=== PATIENT | female | born 1990 | race Caucasian/White ===

== ENCOUNTER 2019-06-25 05:35 | Outpatient (CLI) | payer OTHER ==
[~2019-06-25] VITALS: Ht 157.5 cm; Wt 74.3 kg
[~2019-06-25 05:35] MED LIST: CIPR500T4 PO; DOCU-159 PO; FER325 PO; IBUP-1544 PO; L.AC460C PO; PREN-93 PO
[2019-06-25 05:59] VITALS: BP 111/65; PULSE 68; RESP 18
--- NOTE | 2019-06-25 07:35 | TRIAGE ---
OB Triage Datetime Report Generated by CPN: 06/25/2019 07:35 Datetime: 06/25/2019 06:46 Stage of : OB Triage Labor Evaluation Frequency: 5-10 Monitor Mode: External Quality: Mild Pattern: Normal: <= 5 Contractions in 10 Minutes Resting Tone Bush: Relaxed Contraction Comments: Pt denies feeling ucs Heart Rate FHR Baseline Rate: 130 Monitor Mode: External US FHR Baseline Changes: No Baseline Change Variability: Moderate 6-25 bpm Accelerations: 15X15 Decelerations: None Category: Category I Pain Assessment Pain Scale: 0 Pain Presence: None/Denies Pain Type: N/A Vaginal Exam Membrane Status: Intact Datetime: 06/25/2019 05:56 Time of Arrival: 06/25/2019 05:30 EGA: 39.6 Arrived By: Wheelchair Arrived From: Home Chief Complaint: c/o DFM since 2299 Movement: Decreased Contractions: Denies/Absent Rupture of Membranes: Denies Vaginal Bleeding: None Vaginal Discharge: Denies Recent Sexual Intercouse: Denies Abdominal Trauma: Not Applicable Patient Complaints: Nausea Time Provider Notified: 06/25/2019 05:50 Provider Notified: Dr Abreu Initial Plan: EFM,UA,URINE CULTURE, BPP,EFW Datetime: 06/25/2019 05:50 Stage of : OB Triage Datetime: 06/25/2019 05:48 Stage of : OB Triage Maternal Assessment Level of Consciousness: Keenly Alert, Responsive Headache: Denies Blurred Vision: No Nausea/Vomiting: Denies RUQ Epigastric Pain: Denies Facial Edema: None Monitor Mode: External Resting Tone Bush: Relaxed Heart Rate FHR Baseline Rate: 125 Monitor Mode: External US Pain Assessment Pain Scale: 0 Pain Presence: None/Denies Pain Type: N/A
--- NOTE | 2019-06-25 12:09 | PN ---
Triage Information Date/Time 06/25/19 Reason for visit: DFM Weeks of Gestation 39w6d /Para Diabetes: none Hypertention: none Objective Vital Signs Date Temp Pulse Resp B/P (MAP) Pulse Ox O2 O2 Flow FiO2 Time Delivery Rate 06/25/19 98.7 68 18 111/65 Room Air 05:59 (80) Heart Rate: 120's Heart Rate Comments CAT I Contractions: None Results/Medications Results 24 hrs Laboratory Tests Test 06/25/19 05:30 Urine Color STRAW Urine Clarity CLEAR Urine pH 6.0 Urine Specific Yeso 1.004 Urine Ketones NEGATIVE Urine Nitrite NEGATIVE Urine Bilirubin NEGATIVE Urine Urobilinogen NEGATIVE Urine Leukocyte Esterase NEGATIVE Urine Hemoglobin NEGATIVE Urine Glucose NEGATIVE Urine Total Protein NEGATIVE Imaging Results BPP 07/05 ERIN 9cm EFW 4042+- 606gm Assessment/Plan A IUP 39w 6d macrosomia DFM P IOL was recommended by her OB refuse to be induced and BERT Sultana MD Jun 25, 2019 12:09
== END 2019-06-25 07:10 | disposition left against medical advice (07) ==
LOC: OBT 05:35 → L-D 05:35 → OBT 07:10
PROVIDERS: ATTEND Obstetrics & Gynecology
DX: O36.8130 Decreased fetal movements, third trimester, not applicable or unspecified (principal); O36.63X0 Maternal care for excessive fetal growth, third trimester, not applicable or unspecified; O26.893 Other specified pregnancy related conditions, third trimester; R10.2 Pelvic and perineal pain; Z3A.39 39 weeks gestation of pregnancy
CPT/HCPCS: 76815; 76818; 81003; 87086; G0463

== ENCOUNTER 2019-06-26 20:18 | Inpatient (IN) | payer OTHER ==
[~2019-06-26] VITALS: Ht 157.5 cm; Wt 75.7 kg
--- NOTE | 2019-06-26 20:44 | TRIAGE ---
OB Triage Datetime Report Generated by CPN: 06/26/2019 20:43 Datetime: 06/26/2019 20:31 Dilatation (cms): 1.0 Effacement (%): 50 Station: -2 Exam By: madi Vaginal Bleeding: None Cervix, Consistency: Soft Cervix, Position: Midposition Datetime: 06/26/2019 20:29 Assessment Type: Triage Level of Consciousness: Keenly Alert, Responsive DTR's/Clonus: DTRs 2+; No Clonus Headache: Denies Blurred Vision: No Respiratory Effort: Unlabored; Regular Rhythm; Equal Expansion Breath Sounds, Left: Clear and Equal Breath Sounds, Right: Clear and Equal Nausea/Vomiting: Denies RUQ Epigastric Pain: Denies Lower Extremities Edema: None Degree: None Upper Extremities Edema: None Degree: None Facial Edema: None History of Falling: (0) No Secondary Diagnosis: (0) No Ambulatory Aid: (0) Bedrest/Nurse Assist IV Therapy: (0) No Gait: (0) Normal/Bedrest/Immobile Mental Status: (0) Oriented to Own Ability Fall Score: 0 Fall Risk Score Definition: No Risk: No action required Datetime: 06/26/2019 20:28 Time of Arrival: 06/26/2019 20:13 EGA: 40.0 Arrived By: Ambulatory Arrived From: Home Chief Complaint: pt. here C/O UC'S Movement: Present Contractions: Irregular Rupture of Membranes: Denies Vaginal Bleeding: Scant Vaginal Discharge: Denies Recent Sexual Intercouse: Denies Abdominal Trauma: Not Applicable Patient Complaints: Contractions; Cramping; Back Pain Time Provider Notified: 06/26/2019 20:35 Provider Notified: ESHAGHIAN Initial Plan: EFM/SVE Datetime: 06/26/2019 20:25 Time of Arrival: 06/26/2019 20:13 EGA: 40.0 Datetime: 06/26/2019 20:23 Monitor Mode: External Monitor Mode: External US Datetime: 06/25/2019 06:58 Stage of : OB Triage
[2019-06-26 20:49] VITALS: BP 99/53; PULSE 71; RESP 18; Ht 157.5 cm; Wt 75.7 kg
[2019-06-26] MEDS ORDERED: METHYLERGONOVINE 0.2 MG INJ IM PRN (21:00)
[2019-06-26] MEDS ORDERED: OXYTOCIN 30 UNITS/LR 500 ML IV PRN (21:00)
[2019-06-26] MEDS ORDERED: LIDOCAINE 1% (MPF) 30 ML INJ INJ PRN (21:00)
[2019-06-26] MEDS ORDERED: AMPICILLIN 2 GM/NS (PMX) 100 ML IV ONE (21:00)
[2019-06-26] MEDS ORDERED: BUTORPHANOL 2 MG INJ IV PRN (21:00)
[2019-06-26] MEDS ORDERED: CARBOPROST 250 MCG INJ IM PRN (21:00)
[2019-06-26] MEDS ORDERED: OXYTOCIN 30 UNITS/LR 500 ML IV SCH ×2 (21:00)
[2019-06-26] MEDS ORDERED: MISOPROSTOL 200 MCG TAB PR PRN (21:00)
[2019-06-26] MEDS: LACTATED RINGER'S 1,000 ML IV SCH (22:38)
[2019-06-27] MEDS: AMPICILLIN 1 GM/NS (PMX) 50 ML IV SCH ×4 (03:02→15:08)
[2019-06-27] MEDS: LACTATED RINGER'S 1,000 ML IV SCH ×3 (06:19→23:46)
--- NOTE | 2019-06-27 07:42 | PREOPHP ---
DATE OF ADMISSION: 06/26/2019 HISTORY OF PRESENT ILLNESS: Ms. Wendie Angel is a 28-year-old 1, para 0, EDC 06/26/2019 intra uterine at 40 weeks and 1 day gestational age, presented to triage yesterday complaining of contractions. Earlier this week, she was seen in triage for decreased movement; however, she left against medical advice. She currently rates her contractions pain 6/10. She currently reports good movement. Denies any vaginal bleeding or discharge. Her care took place at [facility]. PAST MEDICAL HISTORY: None. MEDICATIONS: vitamins. PAST SURGICAL HISTORY: None. OBSTETRIC HISTORY: Prima . GYNECOLOGIC HISTORY: [age], regular 3 to 4 days. Denies any sexually transmitted infections. Sexu ally active with 1 partner. SOCIAL HISTORY: Denies any smoking, drugs or alcohol. FAMILY HISTORY: None. REVIEW OF SYSTEMS: All within normal except history of present illness. PHYSICAL EXAMINATION: HEENT: Within normal. LUNGS: CTA bilateral. CARDIOVASCULAR: S1, S2, regular rhythm. ABDOMEN: Gravid, nontender. Negative CVA bilateral. EXTREMITIES: Negative for calf tenderness. PELVIC: Vaginal exam 1 cm dilated, 40% effaced, -3 station. heart tracing category 1. [place]: Irregular contractions. Estimated weight 4042 grams. ASSESSMENT: Intrauterine at 40 weeks and 1 day gestational age with a history of decreased movement, suspected macrosomia. PLAN: The patient explained in great detail the increased risk of shoulder dystocia concerning the e stimated weight. The patient desires to continue with induction with cervical ripening with Cy totec and Pitocin. Again the risks, benefits and alternatives were explained, but not limited to, sh oulder dystocia. Plan is to retain care records and after careful review of care r ecords, may consider induction at this time. Dictated By: AMANDEEP GIL/AIDAN Conf#: [id number] DID#: [id number]
[2019-06-27] MEDS: MISOPROSTOL 50 MCG CAPSULE PO SCH ×3 (11:00→18:58)
[2019-06-27] MEDS ORDERED: MISOPROSTOL 50 MCG CAPSULE PO SCH (13:00)
--- NOTE | 2019-06-28 00:18 | PREAC ---
Date/Time of Note Date/Time of Note DATE: 06/28/19 TIME: 00:17 Anesthesia Eval and Record Evaluation Time Pre-Procedure Interview DATE: 06/28/19 TIME: 00:17 Age 28 Sex female NPO: 8 hrs Preoperative diagnosis labor pain Planned procedure epidural Past Medical History Past Medical History: Includes : Gestational age: (40.1) Surgery & Anesthesia Issues No known issue Meds Anticoagulation: No Beta Buddy within 24 hr: No Reason Beta Buddy not given: Pt. not on B-Buddy Reported Medications Vit No.124/Iron/FA ( Vitamin Tablet) 1 Each Tablet, 1 EACH PO DAILY, TAB 06/26/19 Current Medications Lactated Ringer's 1,000 ml @ 125 mls/hr Q8H IV Last administered on 06/27/19at 23:46; Admin Dose 125 MLS/HR; Start 06/26/19 at 20:44 Butorphanol Tartrate (Stadol) 2 mg Q2H PRN IV .PAIN SCALE 6-10 Last administered on 06/27/19at 20:39; Admin Dose 2 MG; Start 06/26/19 at 21:00 Lidocaine (Xylocaine 1% (Mpf)) 30 ml ONCE PRN INJ .EPISIOTOMY; Start 06/26/19 at 21:00 Oxytocin/Lactated Ringer's 500 ml @ 500 mls/hr ONCE POST IV ; Start 06/26/19 at 21:00 Oxytocin/Lactated Ringer's 500 ml @ 125 mls/hr POST IV ; Start 06/26/19 at 21:00 Oxytocin/Lactated Ringer's 500 ml @ 0 mls/hr ONCE PRN IV .VAGINAL BLEEDING; Start 06/26/19 at 21:00 Methylergonovine Maleate (Methergine) 0.2 mg ONCE PRN IM .VAGINAL BLEEDING; Start 06/26/19 at 21:00 Carboprost Tromethamine (Hemabate) 250 mcg ONCE PRN IM .VAGINAL BLEEDING; Start 06/26/19 at 21:00 Misoprostol (Cytotec) 1,000 mcg ONCE PRN AK .VAGINAL BLEEDING; Start 06/26/19 at 21:00 Misoprostol (Cytotec 50 Mcg Capsule) 50 mcg Q4H PO Last administered on 06/27/19at 18:58; Admin Dose 50 MCG; Start 06/27/19 at 11:00; Stop 06/28/19 at 07:01 Meds reviewed: Yes Allergies Coded Allergies: No Known Allergy (Unverified , 06/25/19) Allergies Reviewed: Yes Labs/Studies Labs Reviewed: Reviewed by anesthesiologist Result Diagram: 06/26/192139 test: Positive Studies: ECG (n/a), CXR (n/a) Pre-procedure Exam Last vitals Vital Signs Date Temp Pulse Resp B/P (MAP) Pulse Ox O2 O2 Flow FiO2 Time Delivery Rate 06/26/19 98.2 71 18 99/53 (68) Room Air 20:49 Airway: Adequate mouth opening Mallampati: Mallampati I Teeth: Normal Lung: Normal Heart: Normal ASA Physical Status ASA physical status: 2 Emergency: None Planned Anesthetic Neuraxial: Epidural Pre-operative Attestations Prior to commencing anesthesia and surgery, the patient was re-evaluated, there was verification of: *The patient's identity *The results of appropriate recent lab work and preoperative vital signs *The above evaluation not changing prior to induction *Anesthetic plan, risk benefits, alternative and complications discussed with patient/family; questions answered; patient/family understands, accepts and wishes to proceed. YESENIA DODSON MD Jun 28, 2019 00:18
[2019-06-28] MEDS ORDERED: FENTAnyl 2MCG/ML-ROPIV 0.2% 100 ML ONE (00:34)
[2019-06-28] MEDS ORDERED: DIPHENHYDRAMINE 50 MG INJ IV PRN (01:00)
[2019-06-28] MEDS ORDERED: NALOXONE (0.4 MG/ML) INJ IV PRN (01:00)
--- NOTE | 2019-06-28 01:03 | PAC ---
Date/Time of Note Date/Time of Note DATE: 06/28/19 TIME: 01:02 Post-Anesthesia Notes Post-Anesthesia Note Last documented vital signs Vital Signs Date Temp Pulse Resp B/P (MAP) Pulse Ox O2 O2 Flow FiO2 Time Delivery Rate 06/28/19 98.2 71 18 100/57 99 Room Air 05:49 Activity: WNL Respiratory function: WNL Cardiovascular function: WNL Mental status: Baseline Pain reasonably controlled: Yes Hydration appropriate: Yes Nausea/Vomiting absent: No YESENIA DODSON MD Jun 28, 2019 01:03
[2019-06-28] MEDS: ONDANSETRON 4 MG INJ IV PRN ×3 (01:06→21:29)
[2019-06-28] MEDS: LACTATED RINGER'S 1,000 ML IV SCH ×4 (01:14→22:58)
[2019-06-28] MEDS: MISOPROSTOL 50 MCG CAPSULE PO SCH ×3 (01:14→19:00)
[2019-06-28] MEDS ORDERED: OXYTOCIN 30 UNITS/LR 500 ML IV SCH (08:30)
[2019-06-28] MEDS: FENTAnyl 2MCG/ML-ROPIV 0.2% 100 ML BAG EPI SCH ×3 (16:21→23:58)
--- NOTE | 2019-06-28 19:31 | QN ---
Documentation Comment progress note patient seen and evaluated no complaints vs stable afebrile ab gravid nt extremity no edema no calf tenderness ve 4-5/60/-2 srom fhr cat 1 toco regular a/ iup at 40 wks 2 days ga, in labor with pitocin augmentation p/ anticipate vaginal delivery AMANDEEP HINOJOSA MD Jun 28, 2019 19:31
[2019-06-29] MEDS ORDERED: ACETAMINOPHEN 500 MG TAB PO STA ×2 (01:10→16:35)
[2019-06-29] MEDS: LACTATED RINGER'S 1,000 ML IV SCH ×4 (01:20→14:40)
[2019-06-29] MEDS: FENTAnyl 2MCG/ML-ROPIV 0.2% 100 ML BAG EPI SCH ×2 (05:39→10:31)
[2019-06-29] MEDS ORDERED: MINERAL OIL LIGHT 10 ML VIAL TOP ONE (06:00)
[2019-06-29] MEDS ORDERED: AMPICILLIN 2 GM/NS (PMX) 100 ML IV ONE (07:00)
[2019-06-29] MEDS ORDERED: METHYLERGONOVINE 0.2 MG INJ ONE (07:00)
[2019-06-29] MEDS ORDERED: CARBOPROST 250 MCG INJ ONE (07:00)
[2019-06-29] MEDS ORDERED: DEXTROSE 5%-LR 500 ML IV ONE (10:00)
[2019-06-29] MEDS: AMPICILLIN 1 GM/NS (PMX) 50 ML IV SCH ×2 (11:38→14:42)
[2019-06-29] MEDS: ONDANSETRON 4 MG INJ IV PRN (15:57)
[2019-06-29] MEDS ORDERED: CEFAZOLIN 2 GM/50 ML (PMX) 50 ML IVPB SCH (17:00)
[2019-06-29] MEDS ORDERED: AZITHROMYCIN 500MG/NS (PMX) 250 ML IVPB ONE (17:00)
[2019-06-29] MEDS ORDERED: ACETAMINOPHEN 1000MG/100ML IV 100 ML IVPB ONE (17:00)
[2019-06-29] MEDS ORDERED: morphine SULFATE/PF (10 MG/10 ML) INJ ONE (17:15)
[2019-06-29] MEDS ORDERED: OXYTOCIN 10 UNIT INJ ONE ×2 (17:19→17:54)
[2019-06-29] MEDS ORDERED: ONDANSETRON 4 MG INJ ONE (17:19)
[2019-06-29] MEDS ORDERED: MIDAZOLAM 1 MG/ML 2 ML INJ ONE ×2 (17:27→17:49)
[2019-06-29] MEDS ORDERED: FENTAnyl 50 MCG/ML VIAL ONE ×3 (17:44→18:10)
--- NOTE | 2019-06-29 19:04 | PAC ---
Date/Time of Note Date/Time of Note DATE: 06/29/19 TIME: 19:03 Post-Anesthesia Notes Post-Anesthesia Note Last documented vital signs Vital Signs Date Temp Pulse Resp B/P (MAP) Pulse Ox O2 O2 Flow FiO2 Time Delivery Rate 06/29/19 100.1 01:20 06/26/19 71 18 99/53 (68) Room Air 20:49 Activity: WNL Respiratory function: WNL Cardiovascular function: WNL Mental status: Baseline Pain reasonably controlled: Yes Hydration appropriate: Yes Nausea/Vomiting absent: Yes Comments BP:112/67, P:78, Spo2:100%, T:98,9 TATIANNA MILES MD Jun 29, 2019 19:04
[2019-06-29] MEDS ORDERED: NALOXONE (0.4 MG/ML) INJ IV PRN (19:30)
[2019-06-29] MEDS ORDERED: morphine 2 MG INJ IV PRN (19:30)
[2019-06-29] MEDS ORDERED: DIPHENHYDRAMINE 50 MG INJ IV PRN (19:30)
[2019-06-29] MEDS ORDERED: ONDANSETRON 4 MG INJ IV PRN (19:30)
[2019-06-29] MEDS: KETOROLAC 30 MG INJ IV PRN (19:47)
--- NOTE | 2019-06-29 19:51 | OPPN ---
Date/Time of Note Date/Time of Note DATE: 06/29/19 TIME: 19:35 Operative Report Planned Procedure Free Text/Dictation primary c/s is decided for mode of delivery due to failure to descent and maternal fever and tachycardia Procedure date Jun 29, 2019 Procedure(s) primary LTCS Performed by see signature line Contact Manager: ИРИНА SMALL 2nd Contact Manager none Anesthesiologist: TATIANNA MILES MD Pre-procedure diagnosis IUP 40w3d failure to descent maternal fever tachycardia [id number] Anesthesia Type: Dewww8x spinal Post-Procedure Post-procedure diagnosis delivered normal male infant same as above Findings Live Baby [m ], Apgars [9] and [9], weight [8lb10z], position ], [op] vx presentation [no]cord. Estimated Blood Loss: 600 - 700 mls Specimen(s) none Grafts/Implant(s) none Complication(s) none BERT MEDEL MD Jun 29, 2019 19:46
[2019-06-29] MEDS ORDERED: LACTATED RINGER'S 1,000 ML IV SCH (21:42)
[2019-06-29] MEDS ORDERED: OXYTOCIN 30 UNITS/LR 500 ML IV SCH (21:42)
[2019-06-29] MEDS ORDERED: OXYCODONE/ACETAMINOPHEN (5/325) TAB PO PRN (22:00)
[2019-06-29] MEDS ORDERED: MISOPROSTOL 200 MCG TAB PR PRN (22:00)
[2019-06-29] MEDS ORDERED: OXYTOCIN 30 UNITS/LR 500 ML IV PRN (22:00)
[2019-06-29] MEDS ORDERED: NA PHOSPHATE/BIPHOS 133 ML ENEMA PR PRN (22:00)
[2019-06-29] MEDS ORDERED: NACL 0.9% 3 ML SYG IV SCH (22:00)
[2019-06-29] MEDS ORDERED: METHYLERGONOVINE 0.2 MG INJ IM PRN (22:00)
[2019-06-29] MEDS ORDERED: CARBOPROST 250 MCG INJ IM PRN (22:00)
[2019-06-29 22:30] VITALS: BP 104/62; PULSE 95; RESP 18
[2019-06-29] MEDS: CLINDAMYCIN 900 MG/D5W (PMX) 50 ML IVPB SCH (23:40)
[2019-06-30] MEDS: KETOROLAC 30 MG INJ IV PRN ×2 (02:23→16:32)
[2019-06-30 04:00] VITALS: BP 104/69; PULSE 88; RESP 18
[2019-06-30] MEDS: LANOLIN HPA 1 PKT TOP PRN (05:43)
[2019-06-30 08:45] VITALS: BP 112/65; PULSE 99; RESP 18
[2019-06-30] MEDS: CLINDAMYCIN 900 MG/D5W (PMX) 50 ML IVPB SCH (09:01)
[2019-06-30] MEDS: SENNA/DOCUSATE NA (8.6MG/50MG) TAB PO SCH ×2 (09:01→21:00)
[2019-06-30] MEDS: ACETAMINOPHEN 325 MG TAB PO PRN ×2 (11:12→17:08)
[2019-06-30] MEDS ORDERED: ACETAMINOPHEN 325 MG TAB PO PRN (11:30)
[2019-06-30] MEDS: PIPER-TAZO 3.375 GM IV (PMX) 100 ML IVPB SCH ×2 (13:50→22:00)
[2019-06-30 16:30] VITALS: BP 114/66; RESP 16
--- NOTE | 2019-06-30 17:10 | PN ---
Date/Time of Note Date/Time of Note DATE: 06/30/19 TIME: 17:06 OB Subjective Subjective Subjective POD#1 Patient is doing well. She denies nausea, vomiting, shortness of breath, chest pain, headache. She has been ambulating without difficulty, tolerating regular diet. Pain is well controlled on current medications OB Objective Objective Objective Vital Signs Date Temp Pulse Resp B/P (MAP) Pulse Ox O2 O2 Flow FiO2 Time Delivery Rate 06/30/19 102.4 12:00 06/30/19 99 18 112/65 98 08:45 (81) 06/30/19 Room Air 04:00 General: AAO X 3, comfortable, NAD, appropriate mood and affect. Heart: RRR +S1, +S2, no murmurs. Lungs: Clear to auscultation (B/L), no rales, ronchi or wheezing. ABD: +BS. Soft, non-tender. Uterus 2 cm below umbilicus Incision: Dry dressing Flank: No CVA tenderness (B/L) LE: Mild edema. No clubbing, cyanosis, thigh or calf tenderness (B/L). Homans 'sign is negative OB Assessment/Plan Other plan: 28-year-old 1 para 1-0-0-1 s/p delivery at 40 weeks and 2 days for failure to descent. POD#1 - She prather has fever, CBC, urinalysis, urine culture, blood culture x2 ordered. Zosyn 3.75mg every 8 hours started. Plan of care discussed with primary OB - Contraception methods with R/B/A/FR discussed - Continue care - Follow-up with primary OB AFSHAN MOORE Jun 30, 2019 17:10
[2019-06-30 20:00] VITALS: BP 98/60; PULSE 84; RESP 16
--- NOTE | 2019-06-30 22:39 | DELSUM ---
Delivery Summary A-C Datetime Report Generated by CPN: 06/30/2019 22:39 DELIVERY PERSONNEL [employer] Consultant: Mahmood Don MATERNAL INFORMATION Delivery Anesthesia: Epidural Medications in Delivery: 30 UNIT PITOCIN Delivery QBL (ml): 700 Placenta Cultured: No Maternal Complications: None LABOR SUMMARY EDC: 06/26/2019 00:00 No. Babies in Womb: 1 Attempted: No Labor Anesthesia: Epidural LABOR INFORMATION Reason for Induction: Postterm Onset of Labor: 06/26/2019 18:00 Cervical Ripening Agents: Cytotec @ 50 Group B Beta Strep: Negative Antibiotics # of Doses: 5 Antibiotics Time of Last Dose: 06/29/2019 17:10 Steroids Given: None Reason Steroids Not Administered: Not Applicable MEMBRANES Membranes Rupture Method: Artificial Rupture of Membranes: 06/28/2019 18:40 Length of Rupture (hr): 23.02 Amniotic Fluid Color: Light Meconium Amniotic Fluid Amount: Moderate Amniotic Fluid Odor: Normal STAGES OF LABOR Stage 3 hr: 0 Stage 3 min: 2 Total Time in Labor hr: 71 Total Time in Labor min: 43 CSECTION DELIVERY Primary Indication: Arrest of Descent Secondary Indication: Nonreassuring Stat CSection Urgency: Emergency CSection Incidence: Primary Labor: Labor Elective: N/A CSection Incision: Lower Uterine Transverse BABY A INFORMATION Infant Delivery Date/Time: 06/29/2019 17:41 Method of Delivery: Born in Route : No : N/A (Annotations: Data stored by [facility] on behalf of user) Forceps: N/A Vacuum Extraction: N/A Shoulder Dystocia : No SHOULDER DYSTOCIA BABY A Delivery Date/Time: 06/29/2019 17:41 PRESENTATION/POSITION BABY A Presentation: Cephalic Cephalic Presentation: Vertex Vertex Position: Left Occipital Anterior Breech Presentation: N/A PLACENTA INFORMATION BABY A Placenta Delivery Time : 06/29/2019 17:43 Placenta Method of Delivery: Manual Removal Placenta Status: Delivered SCORES BABY A Heart Rate 1 min: >100 bpm Resp Effort 1 min: Good Cry Reflex Irritability 1 min: Cough/Sneeze/Pulls Away Muscle Tone 1 min: Active Motion Color 1 min: Body [place], Extremit Blue Resuscitation Effort 1 min: Tactile Stimulation SCORE 1 MIN: 9 Heart Rate 5 min: >100 bpm Resp Effort 5 min: Good Cry Reflex Irritability 5 min: Cough/Sneeze/Pulls Away Muscle Tone 5 min: Active Motion Color 5 min: Body [place], Extremit Blue Resuscitation Effort 5 min: Tactile Stimulation SCORE 5 MIN: 9 INFANT INFORMATION BABY A Gestational Age at Delivery: 40.3 Gestational Status: Full Term- 39- 40.6 Weeks Outcome : Liveborn, with signs of life Condition : Stable Infant Sex: Male IDENTIFICATION/MEDS BABY A ID Band Number: [id number] ID Band Location: Right Leg; Left Arm Sensor Applied: Yes Sensor Number: [id number] Sensor Location : Cord Clamp Vitamin K Given : Not Given Erythromycin Given: Not Given WEIGHT/LENGTH BABY A Infant Birthweight (gm): 3665 Infant Weight (lb): 8 Infant Weight (oz): 1 Length (in): 21.00 Length (cm): 53.34 CORD INFORMATION BABY A No. Cord Vessels: 3 Nuchal Cord : N/A Nuchal Cord- Other: 0 True Knot: 0 Cord Blood Taken: Yes Banking/Donate Info: NO Infant Suction: Mouth; Nose ASSESSMENT BABY A Infant Complications: Decreased Variability; Extended Tachycardi; Multiple Variable Decels Physical Findings at Delivery: Within Normal Limits Infant Respirations: Appears Normal Naval Designer/ALS Called : No Care By: MIDNA GOODWINC Transferred To: Remains with Mother
[2019-06-30] MEDS: OXYCODONE/ACETAMINOPHEN (5/325) TAB PO PRN (23:17)
[2019-07-01] MEDS: IBUPROFEN 600 MG TAB PO SCH ×5 (01:10→23:43)
[2019-07-01] MEDS: CEPHALEXIN 500 MG CAP PO SCH ×5 (01:10→23:43)
[2019-07-01] MEDS: CLINDAMYCIN 300 MG CAP PO SCH ×5 (01:10→23:43)
[2019-07-01 04:00] VITALS: BP 91/52; PULSE 85; RESP 18
[2019-07-01] MEDS: PIPER-TAZO 3.375 GM IV (PMX) 100 ML IVPB SCH ×3 (04:05→22:00)
--- NOTE | 2019-07-01 08:45 | OPR ---
DATE OF OPERATION: 06/29/2019 PREOPERATIVE DIAGNOSIS: at 40 weeks 3 days, failure to descend, maternal fever, tach ycardia. POSTOPERATIVE DIAGNOSES: Delivered normal male , 9 and 9. PROCEDURE: Primary . ANESTHESIA: Spinal. ANESTHESIOLOGIST: Refer to the chart. ESTIMATED BLOOD LOSS: Approximately 700 mL. PROCEDURE: Under the appropriate induction of epidural anesthesia, the patient was placed in supine position. Abdominal wall was prepped and draped in usual aseptic manner. A transverse incision was made approximately 2 fingers above the pubic rami, incision was carried down through the subcutaneous tissue to the anterior recti fascia which was incised transversely in length of the incision. Fasci al flap was created by blunt and sharp dissection of tendinous attachment to rectus muscle was separa becka and peritoneal cavity was entered. There was a copious amount of serous fluid noted escaped from of the abdominal cavity. The bladder was extremely high. It covers almost the whole operative fiel d because did not seem to be draining which was checked. There was not much draining and the [place] c atheter was above the symphysis, which was felt right on the low segment, which was trying to drain t he out push down with difficulty and finally managed to make an incision much higher than usual level of the uterine incision was made above the uterovesical reflection way high and carried down and anibal ched the amniotic membrane, ruptured, revealed clear amniotic fluid and incision was extended bilater ally with the bandage scissors, and a normal male born from occiput posterior, 9 and 9. Baby weighed 8 pounds 1 ounce. Delayed cord clamp done, and [facility]. Cord blood was obtained. The placenta was removed manually. Cavity was complet quinton explored after uterus was exteriorized. Uterine incision was closed using #1 chromic catgut in c ontinuous manner on the first layer and second layer using 2-0 chromic catgut in continuous manner. No bleeder was noted except the right cornual which was separately closed with 0 chromic catgut with a thin needle. Uterus was relocated into the abdominal cavity after the irrigation done, sponge coun t taken which was correct. Uterine incision was rechecked for the bleeder, which was intact, and the piece of Surgicel was laid on the incisional site. Parietal peritoneum was closed using 0 chromic c atgut in continuous manner, muscle closed with 0 chromic catgut in continuous manner. Fascia closed with #1 Vicryl in continuous manner in 2 segments. Subcutaneous tissue irrigated with water. This l anel was approximated with a 2-0 plain in continuous manner after the hemostasis secured. Skin close d with 3-0 Monocryl in subcuticular manner. Steri-Strip applied. A pressure dressing applied. Ruma mated blood loss approximately 700 mL. Urine output approximately 200 mL. It was orange colored but the tubing was clear. The patient sent to recovery room in stable condition. Dictated By: NICHOLAS VELAZCO/AIDAN Conf#: [id number] DID#: [id number] CC: AMANDEEP HINOJOSA MD;*EndCC*
[2019-07-01 09:00] VITALS: BP 110/71; PULSE 82; RESP 20
[2019-07-01] MEDS: SENNA/DOCUSATE NA (8.6MG/50MG) TAB PO SCH ×2 (09:36→23:43)
[2019-07-01] MEDS: OXYCODONE/ACETAMINOPHEN (5/325) TAB PO PRN ×2 (11:42→19:48)
[2019-07-01 16:10] VITALS: BP 105/65; PULSE 95; RESP 20
--- NOTE | 2019-07-01 17:25 | QN ---
Documentation Comment progress note patient seen and evaluated no complaints vs stable afebrile ab soft nt c/d/i no distention extremity no edema no calf tenderness a/ sp cd pod 2, stable afebrile bacteremia p/ infectious disease consult continue to monitor closely AMANDEEP HINOJOSA MD Jul 01, 2019 17:25
--- NOTE | 2019-07-01 17:55 | CONS ---
DATE OF ADMISSION: 06/26/2019 DATE OF CONSULTATION: 07/01/2019 TYPE OF CONSULTATION: Infectious disease. REASON FOR CONSULTATION: Antibiotic management. HISTORY OF PRESENT ILLNESS: Wendie Angel is a 28-year-old female, 1, para 0 with int rauterine at 40 weeks on 06/26/2019 and 1 day gestational age, presented to triage on 06/25 complaining of contractions. She denied vaginal bleeding. She has an intrauterine o f 40 weeks and 1 day gestational age, history of decreased movement, suspected macrosomia . The patient explained in great detail the increased risk of shoulder dystocia concerning the estim ated weight. She desires to continue with induction with cervical ripening with Cytotec and Pi tocin. HOSPITAL COURSE: The patient had a primary on 06/29/2019 due to failure of descent of the fetus and maternal fever and tachycardia. Normal infant was delivered on 06/29/2019. On 06/30, she is doing well. She denied nausea, vomiting. She was ambulating without difficulty. She had fever to 102.4. CBC, urinalysis, urine culture, blood cultures x2 was ordered and Zosyn was star becka q.8. Microbiology on 06/30/2019, she had Gram-positive cocci in pairs and clusters. She did hav e an epidural. The patient was switched over to clindamycin orally and to Keflex and repeat blood cu ltures were done on 06/30/2019 when she had blood cultures done. PHYSICAL EXAMINATION: GENERAL: She is a well-developed, well-nourished female, alert, responsive, in no acute distress. VITAL SIGNS: Stable. T-max of 102.4. SKIN: Without generalized rash. HEENT: Within normal limits. NECK: Supple. LYMPH NODES: None palpable. CHEST: Decreased breath sounds at the bases. HEART: Without murmur or gallop. ABDOMEN: Soft, nontender. Uterus is 2 cm below the umbilicus. Positive bowel sounds. Dry dressing . EXTREMITIES: Without cyanosis, clubbing or edema. RECTAL AND GENITAL: Deferred. NEUROLOGICAL: No focal neurological abnormalities. IMPRESSION AND PLAN: The patient was started on clindamycin and Keflex. We are going to repeat bloo d cultures. I do not believe that the patient wanted IV therapy. We will repeat blood cultures. I will dictate my findings to Dr. Christine Abreu and Dr. Quijano. Dictated By: JENN NEVES MD, JD/AIDAN Conf#: [id number] DID#: [id number] CC: AMANDEEP HINOJOSA MD;*EndCC*
[2019-07-01 19:51] VITALS: BP 115/72; PULSE 101; RESP 20
[2019-07-02] MEDS: OXYCODONE/ACETAMINOPHEN (5/325) TAB PO PRN ×4 (01:12→20:15)
[2019-07-02 04:05] VITALS: BP 110/70; PULSE 100; RESP 22
[2019-07-02] MEDS: LANOLIN HPA 1 PKT TOP PRN (05:10)
[2019-07-02] MEDS: CEPHALEXIN 500 MG CAP PO SCH ×2 (05:35→12:12)
[2019-07-02] MEDS: IBUPROFEN 600 MG TAB PO SCH ×4 (05:35→23:33)
[2019-07-02] MEDS: CLINDAMYCIN 300 MG CAP PO SCH ×2 (05:35→12:11)
[2019-07-02] MEDS: PIPER-TAZO 3.375 GM IV (PMX) 100 ML IVPB SCH ×2 (06:00→14:00)
[2019-07-02 08:00] VITALS: BP 116/68; PULSE 112; RESP 18
[2019-07-02] MEDS ORDERED: DIPHTH/TET/ACEL PERTUSS (ADULT) 0.5 ML VIAL IM* ONE (09:00)
[2019-07-02] MEDS ORDERED: MEASLES,MUMPS,RUBELLA VACCINE INJ SC* ONE (09:00)
[2019-07-02] MEDS: SENNA/DOCUSATE NA (8.6MG/50MG) TAB PO SCH ×2 (10:08→21:00)
--- NOTE | 2019-07-02 11:18 | QN ---
Documentation Comment progress note patient seen and evaluated no complaints vs stable afebrile ab soft nt c/d/i no distention extremity no edema no calf tenderness a/ sp cd pod 3, stable afebrile bacteremia p/f/u infectious disease f/u repeat blood cultures continue to monitor closely AMANDEEP HINOJOSA MD Jul 02, 2019 11:18
--- NOTE | 2019-07-02 14:47 | CONS ---
Assessment/Plan Assessment/Plan Hospital Course (Demo Recall) Patient is alert looks comfortable denies pain no fevers overnight WBC yesterday was 7.4 no labs today Microbiology: Blood culture on admission grew staph species and staph aureus preliminary urine culture negative Antimicrobials: Clindamycin, Keflex, Zosyn Physical examination: Obese well-developed middle-aged woman who is alert in no distress. Head atraumatic normocephalic neck is supple chest rise symmetrical breath sounds clear heart S1-S2 abdomen soft bowel sounds present extremities without cyanosis Assessment: 1. Bacteremia questionable source 2. Status post Plan: Change antibiotics to vancomycin and Rocephin and await for final cultures. Patient most likely will be discharged with IV antibiotics and PICC line. Discussed with patient and family at bedside Consultation Date/Type/Reason Admit Date/Time Jun 26, 2019 at 20:45 Initial Consult Date Type of Consult id Date/Time of Note DATE: 07/02/19 TIME: 14:47 Exam/Review of Systems Exam Vitals Vital Signs Date Temp Pulse Resp B/P (MAP) Pulse Ox O2 O2 Flow FiO2 Time Delivery Rate 07/02/19 99.0 112 18 116/68 Room Air 08:00 (84) 06/30/19 99 16:30 Results Result Diagram: 07/01/19 0421 Medications Medication Current Medications Oxytocin/Lactated Ringer's 500 ml @ 500 mls/hr ONCE POST IV Last administered on 06/30/19at 10:50; Admin Dose 500 MLS/HR; Start 06/26/19 at 21:00 Oxytocin/Lactated Ringer's 500 ml @ 125 mls/hr POST IV ; Start 06/26/19 at 21:00 Oxytocin/Lactated Ringer's 500 ml @ 0 mls/hr ONCE PRN IV .VAGINAL BLEEDING; Start 06/26/19 at 21:00 Methylergonovine Maleate (Methergine) 0.2 mg ONCE PRN IM .VAGINAL BLEEDING; Start 06/26/19 at 21:00 Diphenhydramine HCl (Benadryl) 25 mg Q4H PRN IV .PRURITUS; Start 06/28/19 at 01:00 Ondansetron HCl (Zofran Inj) 4 mg Q6H PRN IV .NAUSEA/VOMITING Last administered on 06/29/19at 15:57; Admin Dose 4 MG; Start 06/28/19 at 01:00 Naloxone HCl (Narcan) 0.2 mg Q2M PRN IV .RESP RATE; Start 06/28/19 at 01:00 Oxytocin/Lactated Ringer's 500 ml @ 0 mls/hr FOR AUGMENTATION IV Last administered on 06/28/19at 08:23; Admin Dose 1 MLS/HR; Start 06/28/19 at 08:30 Miscellaneous Information (* Miscellaneous Pharmacy Order) Duramorph: 2 mg Epidu... GIVEN XX ; Start 06/29/19 at 19:30 IV Flush (NS 3 ml) 3 ml PER PROTOCOL IV ; Start 06/29/19 at 22:00 Oxycodone/ Acetaminophen (Percocet (5/ 325)) 1 tab Q4H PRN PO .PAIN 4-6; Start 06/29/19 at 22:00 Oxycodone/ Acetaminophen (Percocet (5/ 325)) 2 tab Q4H PRN PO .PAIN 7-10 Last administered on 07/02/19at 07:38; Admin Dose 2 TAB; Start 06/29/19 at 22:00 Ibuprofen (Motrin) 600 mg Q6 PO Last administered on 07/02/19at 12:11; Admin Dose 600 MG; Start 07/01/19 at 00:00 Simethicone (Mylicon) 160 mg Q8H PRN PO .GAS; Start 06/29/19 at 22:00 Senna/Docusate Sodium (Senokot-S) 1 tab BID PO Last administered on 07/02/19at 10:08; Admin Dose 1 TAB; Start 06/30/19 at 09:00 Sodium Biphosphate/ Sodium Phosphate (Fleet Enema) 133 ml DAILY PRN [place] .CONSTI PATION; Start 06/29/19 at 22:00 Lanolin (Lanolin Hpa) 1 applic BEDSIDE MEDICATION PRN TOP .NIPPLES Last administered on 07/02/19at 05:10; Admin Dose 1 APPLIC; Start 06/29/19 at 22:00 Oxytocin/Lactated Ringer's 500 ml @ 0 mls/hr ONCE PRN IV .VAGINAL BLEEDING; Start 06/29/19 at 22:00 Carboprost Tromethamine (Hemabate) 250 mcg ONCE PRN IM .VAGINAL BLEEDING; Start 06/29/19 at 22:00 Misoprostol (Cytotec) 1,000 mcg ONCE PRN [place] .VAGINAL BLEEDING; Start 06/29/19 at 22:00 Acetaminophen (Tylenol Tab) 650 mg Q4H PRN PO MILD PAIN(1-3)OR ELEVATED TEMP Last administered on 06/30/19 17:08; Admin Dose 650 MG; Start 06/30/19 at 11:30 Piperacillin Sod/ Tazobactam Sod 100 ml @ 200 mls/hr Q8 IVPB Last administered on 06/30/19at 13:50; Admin Dose 200 MLS/HR; Start 06/30/19 at 14:00 Clindamycin HCl (Cleocin) 300 mg Q6 PO Last administered on 07/02/19 12:11; Admin Dose 300 MG; Start 07/01/19 at 00:30 Cephalexin (Keflex) 500 mg Q6 PO Last administered on 07/02/19 12:12; Admin Dose 500 MG; Start 07/01/19 at 00:30 LINDA ELLSWORTH NP Jul 02, 2019 14:47
[2019-07-02] MEDS ORDERED: VANCOMYCIN IV PER PHARMACY XX SCH (15:00)
[2019-07-02 15:38] VITALS: BP 103/68; PULSE 98; RESP 18
[2019-07-02] MEDS: CEFTRIAXONE 1 GM/50 ML (PMX) 50 ML IVPB SCH (16:40)
[2019-07-02] MEDS ORDERED: VANCOMYCIN 1.5 GM/NS 250 ML 250 ML IVPB SCH (18:00)
[2019-07-02 20:15] VITALS: BP 106/69; PULSE 93; RESP 18
[2019-07-03] MEDS: VANCOMYCIN 1 GM 250 ML IVPB SCH ×2 (01:47→09:51)
[2019-07-03] MEDS: OXYCODONE/ACETAMINOPHEN (5/325) TAB PO PRN ×3 (02:19→17:05)
[2019-07-03 04:30] VITALS: BP 108/66; PULSE 86; RESP 18
[2019-07-03] MEDS: IBUPROFEN 600 MG TAB PO SCH ×2 (05:45→13:30)
[2019-07-03 08:00] VITALS: BP 114/67; PULSE 87; RESP 19
[2019-07-03] MEDS: SENNA/DOCUSATE NA (8.6MG/50MG) TAB PO SCH (09:50)
--- NOTE | 2019-07-03 12:47 | CONS ---
Assessment/Plan Assessment/Plan Hospital Course (Demo Recall) All noted, no fevers Microbiology: Blood culture on admission grew staph species and MSSA, repeat bld cx neg, urine cx neg Antimicrobials: Vanco Rocephin Physical examination: Obese well-developed middle-aged woman who is alert in no distress. Head atraumatic normocephalic neck is supple chest rise symmetrical breath sounds clear heart S1-S2 abdomen soft bowel sounds present extremities without cyanosis Assessment: 1. MSSA bacteremia of unclearsource 2. Status post Plan: Stable, anticipate dc with home health, midline on IV Rocephin to complete 2 weeks vs PO Cipro but no breast feeding while on it DW Dr Esteban Consultation Date/Type/Reason Admit Date/Time Jun 26, 2019 at 20:45 Initial Consult Date Type of Consult id Date/Time of Note DATE: 07/03/19 TIME: 12:45 Exam/Review of Systems Exam Vitals Vital Signs Date Temp Pulse Resp B/P (MAP) Pulse Ox O2 O2 Flow FiO2 Time Delivery Rate 07/03/19 97.8 86 18 108/66 Room Air 04:30 (80) 06/30/19 99 16:30 Intake and Output 07/02/19 07/02/19 07/03/19 1515:00 23:00 07:00 IntakeIntake Total 250 ml BalanceBalance 250 ml Results Result Diagram: 07/01/19 0421 07/03/19 0441 Results 24hrs Laboratory Tests Test 07/03/19 04:41 Blood Urea Nitrogen 5 L Creatinine 0.46 Medications Medication Current Medications Oxytocin/Lactated Ringer's 500 ml @ 500 mls/hr ONCE POST IV Last administered on 06/30/19at 10:50; Admin Dose 500 MLS/HR; Start 06/26/19 at 21:00 Oxytocin/Lactated Ringer's 500 ml @ 125 mls/hr POST IV ; Start 06/26/19 at 21:00 Oxytocin/Lactated Ringer's 500 ml @ 0 mls/hr ONCE PRN IV .VAGINAL BLEEDING; Start 06/26/19 at 21:00 Methylergonovine Maleate (Methergine) 0.2 mg ONCE PRN IM .VAGINAL BLEEDING; Start 06/26/19 at 21:00 Diphenhydramine HCl (Benadryl) 25 mg Q4H PRN IV .PRURITUS; Start 06/28/19 at 01:00 Ondansetron HCl (Zofran Inj) 4 mg Q6H PRN IV .NAUSEA/VOMITING Last administered on 06/29/19 15:57; Admin Dose 4 MG; Start 06/28/19 at 01:00 Naloxone HCl (Narcan) 0.2 mg Q2M PRN IV .RESP RATE; Start 06/28/19 at 01:00 Oxytocin/Lactated Ringer's 500 ml @ 0 mls/hr FOR AUGMENTATION IV Last administered on 06/28/19 08:23; Admin Dose 1 MLS/HR; Start 06/28/19 at 08:30 Miscellaneous Information (* Miscellaneous Pharmacy Order) Duramorph: 2 mg Epidu... GIVEN XX ; Start 06/29/19 at 19:30 IV Flush (NS 3 ml) 3 ml PER PROTOCOL IV ; Start 06/29/19 at 22:00 Oxycodone/ Acetaminophen (Percocet (5/ 325)) 1 tab Q4H PRN PO .PAIN 4-6; Start 06/29/19 at 22:00 Oxycodone/ Acetaminophen (Percocet (5/ 325)) 2 tab Q4H PRN PO .PAIN 7-10 Last administered on 07/03/19 07:48; Admin Dose 2 TAB; Start 06/29/19 at 22:00 Ibuprofen (Motrin) 600 mg Q6 PO Last administered on 07/03/19 05:45; Admin Dose 600 MG; Start 07/01/19 at 00:00 Simethicone (Mylicon) 160 mg Q8H PRN PO .GAS Last administered on 07/03/19 07:47; Admin Dose 160 MG; Start 06/29/19 at 22:00 Senna/Docusate Sodium (Senokot-S) 1 tab BID PO Last administered on 07/03/19 09:50; Admin Dose 1 TAB; Start 06/30/19 at 09:00 Sodium Biphosphate/ Sodium Phosphate (Fleet Enema) 133 ml DAILY PRN [place] .CONSTIPATION; Start 06/29/19 at 22:00 Lanolin (Lanolin Hpa) 1 applic BEDSIDE MEDICATION PRN [place] .NIPPLES Last administered on 07/02/19 05:10; Admin Dose 1 APPLIC; Start 06/29/19 at 22:00 Oxytocin/Lactated Ringer's 500 ml @ 0 mls/hr ONCE PRN IV .VAGINAL BLEEDING; Start 06/29/19 at 22:00 Carboprost Tromethamine (Hemabate) 250 mcg ONCE PRN IM .VAGINAL BLEEDING; Start 06/29/19 at 22:00 Misoprostol (Cytotec) 1,000 mcg ONCE PRN [place] .VAGINAL BLEEDING; Start 06/29/19 at 22:00 Acetaminophen (Tylenol Tab) 650 mg Q4H PRN PO MILD PAIN(1-3)OR ELEVATED TEMP Last administered on 06/30/19at 17:08; Admin Dose 650 MG; Start 06/30/19 at 11:30 Vancomycin HCl (Vanco Iv Per Pharmacy) VANCOMYCIN PER PHARMACY PER PROTOCOL XX ; Start 07/02/19 at 15:00 Ceftriaxone Sodium 50 ml @ 100 mls/hr Q24H IVPB Last administered on 07/02/19at 16:40; Admin Dose 100 MLS/HR; Start 07/02/19 at 15:00 Vancomycin HCl 250 ml @ 125 mls/hr Q8H IVPB Last administered on 07/03/19at 09:51; Admin Dose 125 MLS/HR; Start 07/03/19 at 02:00 Miscellaneous Information (*Rx Drug Level Order Reminder*) VANCO TR LEVEL PRIOR... 1700 ONCE XX ; Start 07/03/19 at 17:00; Stop 07/03/19 at 17:01 LINDA ELLSWORTH NP Jul 03, 2019 12:47
--- NOTE | 2019-07-03 13:40 | PD.PPDC ---
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
[2019-07-03] MEDS: CEFTRIAXONE 1 GM/50 ML (PMX) 50 ML IVPB SCH (15:00)
[2019-07-03] MEDS ORDERED: BISACODYL 10 MG SUPP PR ONE (15:30)
--- NOTE | 2019-07-03 19:23 | DS ---
DATE OF ADMISSION: 06/26/2019 DATE OF DISCHARGE: 07/03/2019 PRIMARY DIAGNOSES: Intrauterine at 40 weeks and 3 days gestational age, failure to descend , maternal fever/ tachycardia. PROCEDURE: Primary low transverse delivery. CONDITION ON DISCHARGE: Stable. DIET: Regular. MEDICATIONS ON DISCHARGE: 1. Motrin. 2. Iron. 3. Colace. 4. Cipro 500 mg p.o. b.i.d., #28. DISCHARGE SUMMARY: Mrs. Wendie Angel underwent a repeat low transverse delivery on 9. She had an uneventful post- day 1, 2, 3, and 4. Her incision is clean, dry, and intact. S he is ambulating, tolerating diet, positive flatus; however, she did have a maternal fever during lab or and blood culture was positive for bacteremia. Infectious disease consult recommended to be start ed on vancomycin and Rocephin. Currently, the patient has desires to go home and has no signs of sep sis and after discussing the patient's condition with infectious disease, Dr. Esteban, patient agreed to be discharged home with Cipro 500 mg p.o. b.i.d. #28. The patient is aware that she should not be . She should continue to pump and dump until she finishes her antibiotic treatment. T he patient did not have a bowel movement since her delivery and we will order Dulcolax 10 mg suppository for her to have a bowel movement before discharge. The patient was advised to return to the emergency room if she has any signs or symptoms of headache, nausea, vomiting, shortness of dodie th, visual changes or epigastric pain or any signs of sepsis. The patient will follow up in the clin ic in 2 weeks for /postop care. Dictated By: AMANDEEP GIL/AIDAN Conf#: [id number] DID#: [id number]
== END 2019-07-03 19:01 | disposition home or self-care (01) | DRG 788 ==
LOC: OBT 20:18 → L-D 20:22 → OBT 20:45 → L-D 20:45 → MS1 06-29 22:23
PROVIDERS: ADMIT Obstetrics & Gynecology; ATTEND Obstetrics & Gynecology
PROC: 10D00Z1 Extraction of Products of Conception, Low, Open Approach (ICD-10-PCS; principal; 2019-07-01)
PROC: 3E033VJ Introduction of Other Hormone into Peripheral Vein, Percutaneous Approach (ICD-10-PCS; 2019-07-01)
DX: O75.2 Pyrexia during labor, not elsewhere classified (principal); O48.0 Post-term pregnancy; Z3A.40 40 weeks gestation of pregnancy; O32.4XX0 Maternal care for high head at term, not applicable or unspecified; O76 Abnormality in fetal heart rate and rhythm complicating labor and delivery; Z37.0 Single live birth
CPT/HCPCS: 62322; 80307; 81001; 82565; 84520; 85025; 85610; 85730; 86592; 86703; 86762; 86850; 86900; 86901; 87086; 87340; 90715; 99464; G0463; J0290; J0456; J0595; J0696; J1885; J2210; J2250; J2270; J2274; J2405; J2543; J2590; J3010; J3370; J7120; J7121

== ENCOUNTER 2019-07-04 22:33 | Inpatient (IN) | payer OTHER ==
[~2019-07-04] VITALS: Ht 157.5 cm; Wt 77.2 kg
[2019-07-04 22:35] VITALS: Ht 157.5 cm; Wt 77.2 kg
[2019-07-04] MEDS ORDERED: SODIUM CHLORIDE 0.9% 1L BAG IV* STA ×2 (22:46)
[2019-07-04] MEDS ORDERED: ACETAMINOPHEN 325 MG TAB PO STA (22:46)
[2019-07-04] MEDS: POTASSIUM CHLORIDE 100 ML IVPB SCH (23:54)
[2019-07-05] MEDS ORDERED: morphine 4 MG/ML VIAL IV STA ×2 (01:10→03:19)
[2019-07-05] MEDS ORDERED: ONDANSETRON 4 MG INJ IV STA (01:10)
[2019-07-05] MEDS ORDERED: morphine 4 MG/ML VIAL ONE (01:12)
[2019-07-05] MEDS ORDERED: PIPER-TAZO 3.375 GM IV (PMX) 100 ML IVPB ONE (01:30)
[2019-07-05] MEDS ORDERED: ACETAMINOPHEN 325 MG TAB PO PRN (02:30)
[2019-07-05] MEDS ORDERED: ONDANSETRON 4 MG INJ IV PRN (02:30)
[2019-07-05] MEDS: POTASSIUM CHLORIDE 100 ML IVPB SCH ×5 (02:45→21:19)
--- NOTE | 2019-07-05 03:38 | ERD ---
ER Documentation Chief Complaint Chief Complaint PT REPORTS OPENED UP, 5 DAYS POST OP, FEVER HPI Is a 29-year-old female complains of pus draining from her . She is 5 days postop. Feels it was a fever today. No nausea no vomiting. No other current complaints. ROS All systems reviewed and are negative except as per history of present illness. Medications Home Meds Reported Medications Ciprofloxacin Hcl* (Ciprofloxacin Hcl*) 500 Mg Tablet, 500 MG PO BID 07/05/19 Ibuprofen* (Ibuprofen*) 800 Mg Tablet, 800 MG PO DAILY PRN for PAIN LEVEL 1-5 07/05/19 Docusate Sodium* (Docusate Sodium*) 100 Mg Capsule, 100 MG PO DAILY for 30 Days, #60 07/05/19 Ferrous Sulfate* (Ferrous Sulfate*) 325 Mg Tabec, 325 MG PO BID for 30 Days, #60 07/05/19 Discontinued Reported Medications Vit No.124/Iron/FA ( Vitamin Tablet) 1 Each Tablet, 1 EACH PO DAILY, TAB 06/26/19 Allergies Allergies: Coded Allergies: No Known Allergy (Unverified , 07/04/19) PMhx/Soc Medical and Surgical Hx: pt denies Medical Hx, pt denies Surgical Hx History of Surgery: No Anesthesia Reaction: No Hx Neurological Disorder: No Hx Respiratory Disorders: No Hx Cardiac Disorders: No Hx Psychiatric Problems: No Hx Miscellaneous Medical Probl: No Hx Alcohol Use: No Hx Substance Use: No Hx Tobacco Use: No Smoking Status: Never smoker Physical Exam Vitals Vital Signs Date Temp Pulse Resp B/P (MAP) Pulse Ox O2 O2 Flow FiO2 Time Delivery Rate 07/05/19 84 21 102/75 97 Room Air 03:30 (84) 07/05/19 98.7 100 21 119/74 96 Room Air 02:47 (89) 07/05/19 99.7 107 24 112/68 100 Room Air 00:10 (83) 07/04/19 101.2 23:06 07/04/19 109 18 125/85 100 Room Air 23:00 (98) 07/04/19 101.2 113 24 124/63 97 22:35 (83) Physical Exam Const: No acute distress Head: Atraumatic Eyes: Normal Conjunctiva ENT: Normal External Ears, Nose and Mouth. Neck: Full range of motion. No meningismus. Resp: Clear to auscultation bilaterally Cardio: Regular rate and rhythm, no murmurs Abd: Soft, non tender, non distended. Normal bowel sounds Skin: No petechiae or rashes Back: No midline or flank tenderness Ext: No cyanosis, or edema Neur: Awake and alert Psych: Normal Mood and Affect Result Diagram: 07/04/19 22507/04/191 Results 24 hrs Laboratory Tests Test 07/04/19 22:48 07/04/19 22:51 07/05/19 00:01 07/05/19 01:00 POC Venous Lactate 1.8 mmol/L White Blood Count 8.5 10^3/ul Red Blood Count 2.60 10^6/ul Hemoglobin 8.0 g/dl Hematocrit 23.5 % Mean Corpuscular 90.4 fl Volume Mean Corpuscular 30.8 pg Hemoglobin Mean Corpuscular 34.0 g/dl Hemoglobin Concent Red Cell 14.7 % Distribution Width Platelet Count 218 10^3/UL Mean Platelet 11.4 fl Volume Immature 3.200 % Granulocytes % Neutrophils % % Segmented 49 % Neutrophils % (Manual) Band Neutrophils % 26 % (Manual) Lymphocytes % % Lymphocytes % 18 % (Manual) Monocytes % % Monocytes % 6 % (Manual) Eosinophils % % Eosinophils % 1 % (Manual) Basophils % % Nucleated Red Blood 0.0 /100WBC Cells % Immature 0.270 10^3/ul Granulocytes # Neutrophils # 10^3/ul Neutrophils # 4.4 10^3/ul (Manual) Band Neutrophils # 2.2 10^3/ul Lymphocytes 1.5 10^3/ul (Manual) Lymphocytes # 10^3/ul Monocytes # 10^3/ul Monocytes # 0.5 10^3/ul (Manual) Eosinophils # 10^3/ul Basophils # 10^3/ul Nucleated Red Blood 10^3/ul Cells # Platelet Estimate NORMAL Polychromasia 1+ Prothrombin Time 14.6 Sec Prothrombin Time 1.1 Ratio INR International 1.13 Normalized Ratio Activated 37.8 Sec Partial Thromboplas t Time Sodium Level 137 mmol/L Potassium Level 2.4 mmol/L Chloride Level 104 mmol/L Carbon Dioxide 28 mmol/L Level Anion Gap 5 Blood Urea Nitrogen 10 mg/dl Creatinine 0.45 mg/dl Est Glomerular > 60 mL/min Filtrat Rate mL/min Glucose Level 94 mg/dl Calcium Level 7.7 mg/dl Total Bilirubin 0.2 mg/dl Direct Bilirubin 0.00 mg/dl Indirect Bilirubin 0.2 mg/dl Aspartate Amino 20 IU/L Transf (AST/SGOT) Alanine 20 IU/L Aminotransferase (A LT/SGPT) Alkaline 110 IU/L Phosphatase Troponin I < 0.012 ng/ml Total Protein 5.7 g/dl Albumin 2.6 g/dl Globulin 3.10 g/dl Albumin/Globulin 0.83 Ratio Urine Color STRAW Urine Clarity CLEAR Urine pH 7.0 Urine Specific 1.003 [place] Urine Ketones NEGATIVE mg/dL Urine Nitrite NEGATIVE mg/dL Urine Bilirubin NEGATIVE mg/dL Urine Urobilinogen NEGATIVE mg/dL Urine Leukocyte NEGATIVE Henny/ul Esterase Urine Microscopic 0 /HPF RBC Urine Microscopic 0 /HPF WBC Urine Hemoglobin 1+ mg/dL Urine Glucose NEGATIVE mg/dL Urine Total Protein NEGATIVE mg/dl Lactic Acid Level 1.1 mmol/L Current Medications Medications Dose Sig/Patria Start Time Status Last (Trade) Ordered Route PRN Stop Time Admin Dose Reason Admin Sodium 2,320 ml BOLUS OVER 2 07/04/19 DC 07/04/19 Chloride HOURS STAT 22:46 07/04/19 22:50 (NS) IV* 22:48 650 mg ONCE STAT 07/04/19 DC 07/04/19 Acetaminophen PO 22:46 07/04/19 23:06 (Tylenol 22:48 Tab) Sodium 1,500 ml BOLUS OVER 2 07/04/19 DC Chloride HOURS STAT 22:46 07/04/19 (NS) IV* 22:48 Potassium 100 ml @ Q2H IVPB 07/04/19 07/05/19 Chloride 50 mls/hr 23:30 07/05/19 02:45 07:29 Piperacillin 100 ml @ ONCE ONCE 07/05/19 DC 07/05/19 Sod/ 200 mls/hr IVPB 01:30 07/05/19 01:19 Tazobactam 01:59 Sod Morphine 4 mg ONCE STAT 07/05/19 DC 07/05/19 Sulfate IV 01:10 07/05/19 01:18 (morphine) 01:11 Ondansetron 4 mg ONCE STAT 07/05/19 DC 07/05/19 HCl (Zofran IV 01:10 07/05/19 01:18 Inj) 01:11 Morphine 4 mg STK-MED 07/05/19 DC Sulfate ONCE .ROUTE 01:12 07/05/19 (morphine) 01:13 Ondansetron 4 mg BRIDGE ORDER 07/05/19 HCl (Zofran PRN IV 02:30 07/06/19 Inj) NAUSEA/VOMITI 02:29 NG 650 mg ER BRIDGE 07/05/19 Acetaminophen PRN PO 02:30 07/06/19 (Tylenol .MILD PAIN 02:29 Tab) 1-3 OR TEMP Morphine 4 mg ONCE STAT 07/05/19 DC 07/05/19 Sulfate IV 03:19 07/05/19 03:28 (morphine) 03:20 Procedures/MDM Medical decision making: Patient has evidence of site infection. Patient will be admitted to Dr. Francisco Patel. Dr. Sun again the patient's OB was notified. He advised notifying Dr. Abreu from OB. Consult is been placed in system for Dr. Abreu. Potassium was also repleted. Repeat potassium is currently pending. EKG: Rate/Rhythm: [Normal Sinus Rhythm] QRS, ST, T-waves: [No changes consistent w/ acute ischemia] Impression: [No evidence of ischemia or arrhythmia] Chest X-ray 1V Interpreted by me: Soft Tissue: No acute abnormalities Bones: No acute abnormalities Mediastinum/Cardiac Silhouette/Lungs: [No acute abnormalities] Departure Diagnosis: Primary Impression: Postoperative complication Surgical complication system/body Area: skin Surgical complication type: unspecified Procedure type: dermatologic Qualified Codes: L76.82 - Other postprocedural complications of skin and subcutaneous tissue Condition: Serious NIDIA RENE Jul 05, 2019 03:38
[2019-07-05 04:56] VITALS: BP 110/66; PULSE 82; RESP 16
[2019-07-05] MEDS: DEXTROSE 5%-0.45% NACL 1,000 ML IV SCH ×2 (05:35→18:50)
[2019-07-05] MEDS: PANTOPRAZOLE 40 MG INJ IV SCH (05:39)
[2019-07-05] MEDS: PIPER-TAZO 3.375 GM IV (PMX) 100 ML IVPB SCH ×3 (05:39→21:19)
[2019-07-05 07:00] VITALS: BP 113/77; PULSE 81; RESP 18
[2019-07-05] MEDS: morphine 2 MG INJ IV PRN ×4 (09:10→21:22)
[2019-07-05 14:00] VITALS: BP 132/67; PULSE 100; RESP 18
--- NOTE | 2019-07-05 14:11 | QN ---
Documentation Comment pt seen and examined OG SULLIVAN MD Jul 05, 2019 14:11
--- NOTE | 2019-07-05 14:17 | CONS ---
Assessment/Plan Assessment/Plan Hospital Course (Demo Recall) Patient was discharged home 2 days ago readmitted with infected surgical incision with purulent drainage and fever of 101.2 WBC 7.2 platelets 161 neutrophils 64 BUN 7 creatinine 0.40 Antimicrobials Zosyn Physical examination: Obese well-developed middle-aged woman who is alert in no distress. Head atraumatic normocephalic neck is supple chest rise symmetrical breath sounds clear heart S1-S2 abdomen soft bowel sounds present patient has lower abdominal incision with drainage she still has Steri-Strips intact extremities no cyanosis Assessment: 1. Incisional cellulitis, rule out abscess 2. Oxacillin sensitive staph aureus bacteremia per blood cultures drawn on June 30, 2019 3. Status post Plan: Patient is stable we will order culture of the drainage add vancomycin continue Zosyn await for DOCTOR OF NURSE ANESTHESIA evaluation. Consider ultrasound to rule out abscess Consultation Date/Type/Reason Admit Date/Time Jul 05, 2019 at 02:11 Initial Consult Date Type of Consult id Date/Time of Note DATE: 07/05/19 TIME: 14:17 Exam/Review of Systems Exam Vitals Vital Signs Date Temp Pulse Resp B/P (MAP) Pulse Ox O2 O2 Flow FiO2 Time Delivery Rate 07/05/19 98.2 81 18 113/77 94 Room Air 07:00 (89) Intake and Output 07/04/19 07/04/19 07/05/19 1515:00 23:00 07:00 IntakeIntake Total 2670 ml BalanceBalance 2670 ml Results Result Diagram: 07/05/19 0929 07/05/19 0929 Results 24hrs Laboratory Tests Test 07/04/19 22:48 07/04/19 22:51 07/05/19 00:01 07/05/19 01:00 POC Venous Lactate 1.8 White Blood Count 8.5 Red Blood Count 2.60 L Hemoglobin 8.0 L Hematocrit 23.5 L Mean Corpuscular Volume 90.4 Mean Corpuscular 30.8 Hemoglobin Mean Corpuscular 34.0 Hemoglobin Concent Red Cell Distribution 14.7 H Width Platelet Count 218 # Mean Platelet Volume 11.4 H Immature Granulocytes % 3.200 H Neutrophils % Segmented Neutrophils 49 % (Manual) Band Neutrophils % 26 H (Manual) Lymphocytes % Lymphocytes % (Manual) 18 Monocytes % Monocytes % (Manual) 6 Eosinophils % Eosinophils % (Manual) 1 Basophils % Nucleated Red Blood 0.0 Cells % Immature Granulocytes # 0.270 H Neutrophils # Neutrophils # (Manual) 4.4 Band Neutrophils # 2.2 H Lymphocytes (Manual) 1.5 Lymphocytes # Monocytes # Monocytes # (Manual) 0.5 Eosinophils # Basophils # Nucleated Red Blood Cells # Platelet Estimate NORMAL Polychromasia 1+ Prothrombin Time 14.6 # Prothrombin Time Ratio 1.1 INR International 1.13 Normalized Ratio Activated 37.8 H Partial Thromboplast Time Sodium Level 137 Potassium Level 2.4 *L Chloride Level 104 Carbon Dioxide Level 28 Anion Gap 5 Blood Urea Nitrogen 10 Creatinine 0.45 Est Glomerular Filtrat > 60 Rate mL/min Glucose Level 94 Calcium Level 7.7 L Total Bilirubin 0.2 Direct Bilirubin 0.00 Indirect Bilirubin 0.2 Aspartate Amino 20 Transf (AST/SGOT) Alanine 20 Aminotransferase (ALT/SG PT) Alkaline Phosphatase 110 Troponin I < 0.012 Total Protein 5.7 L Albumin 2.6 L Globulin 3.10 Albumin/Globulin Ratio 0.83 Urine Color STRAW Urine Clarity CLEAR Urine pH 7.0 Urine Specific [place] 1.003 Urine Ketones NEGATIVE Urine Nitrite NEGATIVE Urine Bilirubin NEGATIVE Urine Urobilinogen NEGATIVE Urine Leukocyte Esterase NEGATIVE Urine Microscopic RBC 0 Urine Microscopic WBC 0 Urine Hemoglobin 1+ H Urine Glucose NEGATIVE Urine Total Protein NEGATIVE Lactic Acid Level 1.1 Test 07/05/19 05:56 07/05/19 09:29 Sodium Level 138 139 Potassium Level 2.3 *L 2.6 *L Chloride Level 110 110 Carbon Dioxide Level 25 22 Anion Gap 3 L 7 Blood Urea Nitrogen 6 L 7 Creatinine 0.37 L 0.40 L Est Glomerular Filtrat > 60 > 60 Rate mL/min Glucose Level 85 80 Lactic Acid Level 0.7 Calcium Level 7.0 L 7.1 L White Blood Count 7.2 Red Blood Count 2.53 L Hemoglobin 7.6 L Hematocrit 25.2 L Mean Corpuscular Volume 99.6 Mean Corpuscular 30.0 Hemoglobin Mean Corpuscular 30.2 L Hemoglobin Concent Red Cell Distribution 15.5 H Width Platelet Count 161 # Mean Platelet Volume 11.8 H Immature Granulocytes % 4.200 H Neutrophils % Segmented Neutrophils 64 % (Manual) Band Neutrophils % 11 H (Manual) Lymphocytes % Lymphocytes % (Manual) 19 Monocytes % Monocytes % (Manual) 3 Eosinophils % Basophils % Metamyelocytes % 1 H (manual) Myelocytes % (Manual) 2 H Nucleated Red Blood 0.3 H Cells % Immature Granulocytes # 0.300 H Neutrophils # Neutrophils # (Manual) 4.7 Band Neutrophils # 0.7 H Lymphocytes (Manual) 1.3 Lymphocytes # Monocytes # Monocytes # (Manual) 0.2 L Eosinophils # Basophils # Metamyelocytes # 0.0 Myelocytes # 0.1 H Nucleated Red Blood Cells # Platelet Estimate NORMAL Giant Platelets 6 H Polychromasia 2+ Poikilocytosis 3+ Anisocytosis 1+ Microcytosis 1+ Target Cells 1+ Medications Medication Current Medications Ondansetron HCl (Zofran Inj) 4 mg BRIDGE ORDER PRN IV NAUSEA/VOMITING; Start 07/05/19 at 02:30; Stop 07/06/19 at 02:29 Acetaminophen (Tylenol Tab) 650 mg ER BRIDGE PRN PO .MILD PAIN 1-3 OR TEMP; Start 07/05/19 at 02:30; Stop 07/06/19 at 02:29 Pantoprazole (Protonix Iv) 40 mg DAILY@06 IV Last administered on 07/05/19 05:39; Admin Dose 40 MG; Start 07/05/19 at 06:00 Morphine Sulfate (morphine) 2 mg Q4H PRN IV SEVERE PAIN LEVEL 7-10 Last admini stered on 07/05/19at 13:25; Admin Dose 2 MG; Start 07/05/19 at 05:30 Piperacillin Sod/ Tazobactam Sod 100 ml @ 200 mls/hr Q8 IVPB Last administered on 07/05/19 05:39; Admin Dose 200 MLS/HR; Start 07/05/19 at 06:00 Dextrose/Sodium Chloride 1,000 ml @ 75 mls/hr [id number] IV Last administered on 07/05/19at 05:35; Admin Dose 75 MLS/HR; Start 07/05/19 at 05:30 Potassium Chloride 100 ml @ 50 mls/hr Q2H IVPB Last administered on 07/05/19 13:25; Admin Dose 50 MLS/HR; Start 07/05/19 at 09:00; Stop 07/05/19 at 16:59 LINDA ELLSWORTH NP Jul 05, 2019 14:17
[2019-07-05] MEDS ORDERED: VANCOMYCIN IV PER PHARMACY XX SCH ×2 (14:30)
[2019-07-05] MEDS: ACETAMINOPHEN 325 MG TAB PO PRN ×2 (15:09→22:21)
--- NOTE | 2019-07-05 16:25 | HP ---
DATE OF ADMISSION: 07/05/2019 REASON FOR ADMISSION: Fevers and abdominal wound drainage. HISTORY OF PRESENTING ILLNESS: This is a 29-year-old female who was admitted under laborist from until 07/03/2019. At that time, patient had intrauterine of 4 weeks. The patient had failure to descend, maternal fever and tachycardia. The patient had primary low transverse delivery. However, the patient was noted to have blood cultures on 06/30/2019 that were po sitive for Staph aureus. The patient was seen by ID consultation who recommended discharge home with midline IV Rocephin to complete 2 weeks versus p.o. Cipro, but no while on it. The pa rika went home on 07/03/2019. However, the patient said that last night after a day, the patient we nt in the bathroom. All of a sudden, she started having pain in the lower abdomen. She was noted to have purulent discharge from her left side of the incision. She was also having fevers and the smel l was really bad which was making her feel nauseous and came to the emergency department. On arrival , the patient was having fevers of 101.2, heart rate 113, respirations 24, blood pressure 122/73. Po tassium was 2.4, BUN of 10, creatinine 0.5, white count 8.5, hemoglobin 8.0, platelet count 218. The patient received NS boluses, potassium chloride, Zosyn, morphine and was admitted for further manage ment. Per ER notes, PRACTICE PERFORMANCE MANAGER was contacted, but they have not seen the patient currently. PAST MEDICAL HISTORY: Anemia. ALLERGIES: NONE. PAST SURGICAL HISTORY: Recent on 07/01/2019. SOCIAL HISTORY: Denies any history of smoking, alcohol, drugs. Lives with family at home. Has a ba by boy recently delivered. MEDICATIONS TAKING AT HOME: 1. Cipro 500 b.i.d. 2. Iron sulfate 325 b.i.d. 3. Ibuprofen. 4. Colace. REVIEW OF SYSTEMS: The patient complained of severe lower abdominal pain at the incision site, worse swelling on the left side, tender to palpation, active discharge. Had some nausea. Denies any head ache, any blurry vision. Denies any chest pain, shortness of breath. Denies any orthopnea, PND, low er extremity edema. PHYSICAL EXAMINATION: VITAL SIGNS: Initial temperature was 101.2. Initial pulse was 113, currently in 80s, blood pressure 113/77, saturating 94%. GENERAL: The patient is awake, alert, oriented, appears to be in moderate distress secondary to pain . HEENT: Pupils are equal, round, react to light. NECK: Supple. No JVD. HEART: Tachycardic. LUNGS: Clear to auscultate bilaterally. ABDOMEN: The patient has a low site which is extremely tender on palpation, some active dr kelley noted on the left side. There is extreme red and warmth plus the swelling noted on the left s jeaneth of the incision. LABORATORY DATA: Potassium 2.6, BUN of 7, creatinine 0.40, calcium 7.1. White count of 7.2, hemoglo bin 7.6, platelet count 161. DIAGNOSTIC DATA: Chest x-ray showed no evidence of cardiopulmonary disease. The patient had a CT of the abdomen and pelvis that showed combination of surgery with postop gas in the rectus mu scle sheath, endometrial cavity, endometritis believed to be less likely, diffuse subcutaneous fat, c annot exclude the possibility of cellulitis, evidence of subcutaneous abscess. No evidence of intrap eritoneal abscess, left greater than right lower lobe consolidation, atelectasis, small pericardial e ffusion, constipation pattern. ASSESSMENT AND PLAN: 1. This is a 29-year-old female with sepsis with fevers, tachycardia, likely secondary to s ite infection, cellulitis/abscess. 2. Fevers secondary to #1. 3. Recent methicillin-susceptible Staphylococcus aureus bacteremia. 4. Constipation. PLAN: At this period of time, the patient is admitted to med/surg. The patient is on Zofran and mor phine. We will also start the patient on vancomycin. The patient is currently on Zosyn. Blood cult ures will be sent. PRACTICE PERFORMANCE MANAGER, Dr. Ballesteros has already been contacted. We will replete the potassium ag ain. Rest of the treatment will depend on the patient's hospitalization course. Dictated By: OG SULLIVAN RB/NTS Conf#: [id number] DID#: [id number] CC: KALYN ROTH MD; AMANDEEP HINOJOSA MD;*End*
[2019-07-05] MEDS ORDERED: VANCOMYCIN 1.5 GM/NS 250 ML 250 ML IVPB SCH (16:30)
[2019-07-05 20:33] VITALS: BP 124/78; PULSE 84; RESP 18
[2019-07-05] MEDS: VANCOMYCIN 1 GM 250 ML IVPB SCH (22:22)
[2019-07-06] MEDS: morphine 2 MG INJ IV PRN ×5 (01:20→21:49)
[2019-07-06 02:16] VITALS: BP 124/76; PULSE 78; RESP 18
[2019-07-06] MEDS: ACETAMINOPHEN 325 MG TAB PO PRN (03:11)
[2019-07-06] MEDS: PANTOPRAZOLE 40 MG INJ IV SCH (05:23)
[2019-07-06] MEDS: PIPER-TAZO 3.375 GM IV (PMX) 100 ML IVPB SCH ×3 (05:25→21:48)
[2019-07-06] MEDS: VANCOMYCIN 1 GM 250 ML IVPB SCH ×2 (07:42→15:44)
[2019-07-06 08:00] VITALS: BP 131/80; PULSE 76; RESP 18
[2019-07-06] MEDS: D5W-0.45 NACL + KCL 20 MEQ 1,000 ML IV SCH ×2 (08:50→21:50)
[2019-07-06] MEDS: POTASSIUM CHLORIDE (SR) 10 MEQ TAB PO SCH ×2 (08:50→11:34)
[2019-07-06] MEDS ORDERED: HYDROGEN PEROXIDE 118 ML TOP ONE (09:00)
--- NOTE | 2019-07-06 11:39 | PN ---
Date/Time of Note Date/Time of Note DATE: 07/06/19 TIME: 11:39 Assessment/Plan VTE Prophylaxis Risk score (from Ns)>0 risk: 5 [place] [facility] [place] Pharmacological prophylaxis: NA/contraindicated Pharm contraindication: bleeding Lines/Catheters IV C[facility]ter Type (from [facility] Saline Lock Assessment/Plan Hospital Course 1. Sepsis with fever and leucocytosis. 2. Subcutaneous abscess 3. Recent methicillin-susceptible Staphylococcus aureus bacteremia. 4. Constipation. 5. Severe anemia 6. Hypokalemia 7. Obesity Assessment/Plan - med/surg. The patient is on Zofran and morphine. -UA to collect -add Toradol, [place] for pain management. -c/w vancomycin and Zosyn. -abscess res. Gram neg. rods - Blood cultures pending. -STOCK SHAPER, Dr. Ballesteros -GI proph. Protonix DVT proph. SCD bilATERALLY -blood transfusion -[place]. suppl. -reg. diet Result Diagram: 07/06/19 0534 07/06/19 0534 Results 24hrs Laboratory Tests Test 07/05/19 17:56 07/06/19 05:34 Potassium Level 2.8 *L 2.6 *L White Blood Count 8.4 Red Blood Count 2.25 L Hemoglobin 6.8 *L Hematocrit 20.9 L Mean Corpuscular Volume 92.9 Mean Corpuscular Hemoglobin 30.2 Mean Corpuscular Hemoglobin Concent 32.5 Red Cell Distribution Width 15.0 H Platelet Count 230 # Mean Platelet Volume 11.1 H Immature Granulocytes % 5.400 H Neutrophils % Segmented Neutrophils % (Manual) 81 H Band Neutrophils % (Manual) 4 Lymphocytes % Lymphocytes % (Manual) 11 L Monocytes % Monocytes % (Manual) 2 Eosinophils % Basophils % Metamyelocytes % (manual) 1 H Myelocytes % (Manual) 1 H Nucleated Red Blood Cells % 1 H Immature Granulocytes # 0.450 H Neutrophils # Neutrophils # (Manual) 6.8 Band Neutrophils # 0.3 Lymphocytes (Manual) 0.9 Lymphocytes # Monocytes # Monocytes # (Manual) 0.1 L Eosinophils # Basophils # Metamyelocytes # 0.0 Myelocytes # 0.0 Nucleated Red Blood Cells # Platelet Estimate NORMAL Giant Platelets 7 H Polychromasia 3+ Anisocytosis 1+ Microcytosis 1+ Sodium Level 135 Chloride Level 105 Carbon Dioxide Level 26 Anion Gap 4 L Blood Urea Nitrogen 5 L Creatinine 0.45 Est Glomerular Filtrat Rate mL/min > 60 Glucose Level 96 Calcium Level 7.1 L Phosphorus Level 3.6 Magnesium Level 1.7 Subjective 24 Hr Interval Summary Free Text/Dictation dysuria, excr. pain in surg. dressing Exam/Review of Systems Exam Vitals Vital Signs Date Temp Pulse Resp B/P (MAP) Pulse Ox O2 O2 Flow FiO2 Time Delivery Rate 07/06/19 98.6 76 18 131/80 96 08:00 (97) 07/05/19 Room Air 14:00 Intake and Output 07/05/19 07/05/19 07/06/19 1515:00 23:00 07:00 IntakeIntake Total 700 ml 1325 ml 450 ml OutputOutput Total 400 ml BalanceBalance 300 ml 1325 ml 450 ml Exam fever Eyes: anicteric, EOM's intact, no pallor Nose: no rhinorrhea Neck: supple, no thyromegaly, no carotid bruits Lungs: clear bilaterally, decreased. CVS: regular rate and rhythm, no murmurs Abdomen: soft, bowel sounds present, distended Rectal: differed. External genitalia: no lesions. Extremities: no edema, DP pulses are palpable Neuro: alert and oriented x 3 Gait: not seen, in bed Skin: surg. dressing lower abdomen Results Results 24hrs Laboratory Tests Test 07/05/19 17:56 07/06/19 05:34 Potassium Level 2.8 *L 2.6 *L White Blood Count 8.4 Red Blood Count 2.25 L Hemoglobin 6.8 *L Hematocrit 20.9 L Mean Corpuscular Volume 92.9 Mean Corpuscular Hemoglobin 30.2 Mean Corpuscular Hemoglobin Concent 32.5 Red Cell Distribution Width 15.0 H Platelet Count 230 # Mean Platelet Volume 11.1 H Immature Granulocytes % 5.400 H Neutrophils % Segmented Neutrophils % (Manual) 81 H Band Neutrophils % (Manual) 4 Lymphocytes % Lymphocytes % (Manual) 11 L Monocytes % Monocytes % (Manual) 2 Eosinophils % Basophils % Metamyelocytes % (manual) 1 H Myelocytes % (Manual) 1 H Nucleated Red Blood Cells % 1 H Immature Granulocytes # 0.450 H Neutrophils # Neutrophils # (Manual) 6.8 Band Neutrophils # 0.3 Lymphocytes (Manual) 0.9 Lymphocytes # Monocytes # Monocytes # (Manual) 0.1 L Eosinophils # Basophils # Metamyelocytes # 0.0 Myelocytes # 0.0 Nucleated Red Blood Cells # Platelet Estimate NORMAL Giant Platelets 7 H Polychromasia 3+ Anisocytosis 1+ Microcytosis 1+ Sodium Level 135 Chloride Level 105 Carbon Dioxide Level 26 Anion Gap 4 L Blood Urea Nitrogen 5 L Creatinine 0.45 Est Glomerular Filtrat Rate mL/min > 60 Glucose Level 96 Calcium Level 7.1 L Phosphorus Level 3.6 Magnesium Level 1.7 Medications Medication Current Medications Pantoprazole (Protonix Iv) 40 mg DAILY@06 IV Last administered on 07/06/19at 05:23; Admin Dose 40 MG; Start 07/05/19 at 06:00 Morphine Sulfate (morphine) 2 mg Q4H PRN IV SEVERE PAIN LEVEL 7-10 Last administered on 07/06/19at 09:50; Admin Dose 2 MG; Start 07/05/19 at 05:30 Piperacillin Sod/ Tazobactam Sod 100 ml @ 200 mls/hr Q8 IVPB Last administered on 07/06/19 05:25; Admin Dose 200 MLS/HR; Start 07/05/19 at 06:00 Vancomycin HCl (Vanco Iv Per Pharmacy) VANCOMYCIN PER PHARMACY PER PROTOCOL XX ; Start 07/05/19 at 14:30 Acetaminophen (Tylenol Tab) 650 mg Q4H PRN PO MILD PAIN(1-3)OR ELEVATED TEMP Last administered on 07/06/19at 03:11; Admin Dose 650 MG; Start 07/05/19 at 15:00 Vancomycin HCl 250 ml @ 125 mls/hr Q8H IVPB Last administered on 07/06/19at 07:42; Admin Dose 125 MLS/HR; Start 07/05/19 at 23:00 Miscellaneous Information (*Rx Drug Level Order Reminder*) VANCOMYCIN TROUGH 07/06 AT 1400 ONCE ONCE XX ; Start 07/06/19 at 14:00; Stop 07/06/19 at 14:01 Potassium Chloride/Dextrose/ Sod Cl 1,000 ml @ 75 mls/hr [id number] IV Last administered on 07/06/19at 08:50; Admin Dose 75 MLS/HR; Start 07/06/19 at 08:30 DEBO DIXON NP Jul 06, 2019 11:39
[2019-07-06] MEDS ORDERED: HYDROCODONE/APAP (5/325) TAB PO PRN (12:00)
[2019-07-06] MEDS: KETOROLAC 15 MG INJ IV PRN ×2 (12:31→19:57)
[2019-07-06 14:00] VITALS: BP_SYST 124; BP_SYST 134; BP_DIAS 62; BP_DIAS 66; PULSE 76; RESP 18; RESP 20
--- NOTE | 2019-07-06 14:38 | CONS ---
Assessment/Plan Assessment/Plan Hospital Course (Demo Recall) Alert, feels good, no fevers Surgical incision drainage culture growing gram-negative rods Antimicrobials: Vanco Zosyn Physical examination: Obese well-developed middle-aged woman who is alert in no distress. Head atraumatic normocephalic neck is supple chest rise symmetrical breath sounds clear heart S1-S2 abdomen soft bowel sounds present patient has lower abdominal incision with drainage she still has Steri-Strips intact extremities no cyanosis Assessment: 1. Incisional cellulitis, rule out abscess 2. Oxacillin sensitive staph aureus bacteremia per blood cultures drawn on June 30, 2019 3. Status post Plan: Remains stable no evidence for abscess per CT, continue antibiotics, await for final cultures Consultation Date/Type/Reason Admit Date/Time Jul 05, 2019 at 02:11 Initial Consult Date Type of Consult id Date/Time of Note DATE: 07/06/19 TIME: 14:36 Exam/Review of Systems Exam Vitals Vital Signs Date Temp Pulse Resp B/P (MAP) Pulse Ox O2 O2 Flow FiO2 Time Delivery Rate 07/06/19 98.6 76 18 131/80 96 08:00 (97) 07/05/19 Room Air 14:00 Intake and Output 07/05/19 07/05/19 07/06/19 1515:00 23:00 07:00 IntakeIntake Total 700 ml 1325 ml 450 ml OutputOutput Total 400 ml BalanceBalance 300 ml 1325 ml 450 ml Results Result Diagram: 07/06/19 0534 07/06/19 0534 Results 24hrs Laboratory Tests Test 07/05/19 17:56 07/06/19 05:34 07/06/19 12:15 Potassium Level 2.8 *L 2.6 *L White Blood Count 8.4 Red Blood Count 2.25 L Hemoglobin 6.8 *L Hematocrit 20.9 L Mean Corpuscular Volume 92.9 Mean Corpuscular Hemoglobin 30.2 Mean Corpuscular Hemoglobin Concent 32.5 Red Cell Distribution Width 15.0 H Platelet Count 230 # Mean Platelet Volume 11.1 H Immature Granulocytes % 5.400 H Neutrophils % Segmented Neutrophils % (Manual) 81 H Band Neutrophils % (Manual) 4 Lymphocytes % Lymphocytes % (Manual) 11 L Monocytes % Monocytes % (Manual) 2 Eosinophils % Basophils % Metamyelocytes % (manual) 1 H Myelocytes % (Manual) 1 H Nucleated Red Blood Cells % 1 H Immature Granulocytes # 0.450 H Neutrophils # Neutrophils # (Manual) 6.8 Band Neutrophils # 0.3 Lymphocytes (Manual) 0.9 Lymphocytes # Monocytes # Monocytes # (Manual) 0.1 L Eosinophils # Basophils # Metamyelocytes # 0.0 Myelocytes # 0.0 Nucleated Red Blood Cells # Platelet Estimate NORMAL Giant Platelets 7 H Polychromasia 3+ Anisocytosis 1+ Microcytosis 1+ Sodium Level 135 Chloride Level 105 Carbon Dioxide Level 26 Anion Gap 4 L Blood Urea Nitrogen 5 L Creatinine 0.45 Est Glomerular Filtrat Rate mL/min > 60 Glucose Level 96 Calcium Level 7.1 L Phosphorus Level 3.6 Magnesium Level 1.7 Urine Color STRAW Urine Clarity CLEAR Urine pH 7.0 Urine Specific [place] 1.005 Urine Ketones NEGATIVE Urine Nitrite NEGATIVE Urine Bilirubin NEGATIVE Urine Urobilinogen NEGATIVE Urine Leukocyte Esterase 2+ H Urine Microscopic RBC 13 H Urine Microscopic WBC 60 H Urine Bacteria FEW A Urine Hemoglobin 3+ H Urine Glucose NEGATIVE Urine Total Protein NEGATIVE Medications Medication Current Medications Morphine Sulfate (morphine) 2 mg Q4H PRN IV SEVERE PAIN LEVEL 7-10 Last administered on 07/06/19 09:50; Admin Dose 2 MG; Start 07/05/19 at 05:30 Piperacillin Sod/ Tazobactam Sod 100 ml @ 200 mls/hr Q8 IVPB Last administered on 07/06/19 13:56; Admin Dose 200 MLS/HR; Start 07/05/19 at 06:00 Vancomycin HCl (Vanco Iv Per Pharmacy) VANCOMYCIN PER PHARMACY PER PROTOCOL XX ; Start 07/05/19 at 14:30 Acetaminophen (Tylenol Tab) 650 mg Q4H PRN PO MILD PAIN(1-3)OR ELEVATED TEMP Last administered on 07/06/19 03:11; Admin Dose 650 MG; Start 07/05/19 at 15:00 Vancomycin HCl 250 ml @ 125 mls/hr Q8H IVPB Last administered on 07/06/19 07:42; Admin Dose 125 MLS/HR; Start 07/05/19 at 23:00 Potassium Chloride/Dextrose/ Sod Cl 1,000 ml @ 75 mls/hr [id number] IV Last administered on 07/06/19 08:50; Admin Dose 75 MLS/HR; Start 8/9/19 at 08:30 Acetaminophen/ Hydrocodone Bitart ([place] (5/325)) 1 tab Q6H PRN PO MODERATE PAIN LEVEL 4-6; Start 07/06/19 at 12:00 Ketorolac Tromethamine (Toradol) 15 mg Q6H PRN IV PAIN Last administered on 07/06/19at 12:31; Admin Dose 15 MG; Start 07/06/19 at 12:00; Stop 07/09/19 at 11:59 Pantoprazole (Protonix Tab) 40 mg DAILY@06 PO ; Start 07/07/19 at 06:00 LINDA ELLSWORTH NP Jul 06, 2019 14:38
[2019-07-06 20:00] VITALS: BP 128/75; PULSE 84; RESP 18
--- NOTE | 2019-07-06 21:04 | QN ---
Documentation Comment Primary c/s for maternal fever and tachycardia and failure to descent on 06/29/19 wound inspection revealed steritape was wet due to drainage from the wound ,according to patient which was copious amount light brownish colored c/o more pain on left lateral aspect of incision on inspection no erythematous change on adjacent to incisional site on palpation right lateral aspect of incision induration felt more than left lateral aspect of incision incision was pressed lobtained more of drainage grayish colored thin fluid , ,from each lateral aspect of incision wound opened on each corner by cutting the suture and drained fluid check the underline fascia with qtips which was intact wound was irrigated with H2O2 mixed with Normal saline vigorously and packed with packing tape. dressing applied. will f/u at my office for wound care in one week next if Dr Cisneros allow me to continue to care BERT MEDEL MD Jul 06, 2019 21:03
[2019-07-06] MEDS: VANCOMYCIN 1.25 GM/NS 250 ML 250 ML IVPB SCH (23:13)
[2019-07-07] MEDS: morphine 2 MG INJ IV PRN ×4 (01:22→22:30)
[2019-07-07 02:21] VITALS: BP 128/81; PULSE 72; RESP 20
[2019-07-07] MEDS: KETOROLAC 15 MG INJ IV PRN ×3 (03:38→17:47)
[2019-07-07] MEDS: PANTOPRAZOLE (EC) 40 MG TAB PO SCH (05:38)
[2019-07-07] MEDS: D5W-0.45 NACL + KCL 20 MEQ 1,000 ML IV SCH (05:38)
[2019-07-07] MEDS: PIPER-TAZO 3.375 GM IV (PMX) 100 ML IVPB SCH (05:41)
[2019-07-07] MEDS: VANCOMYCIN 1.25 GM/NS 250 ML 250 ML IVPB SCH (06:42)
[2019-07-07 08:00] VITALS: BP 135/88; PULSE 58; RESP 17
--- NOTE | 2019-07-07 09:47 | CONS ---
Assessment/Plan Assessment/Plan Hospital Course (Demo Recall) No acute events Drainage cx for incision + E coli ESBL Antimicrobials: Vanco Zosyn Physical examination: Obese well-developed middle-aged woman who is alert in no distress. Head atraumatic normocephalic neck is supple chest rise symmetrical breath sounds clear heart S1-S2 abdomen soft bowel sounds present patient has lower abdominal incision with drainage she still has Steri-Strips intact extremities no cyanosis Assessment: 1. Incisional cellulitis==> no abscess per CT 2. S/p MSSA bacteremia per blood cultures drawn on June 30, 2019 3. Status post Plan: Change abx to Invanz, consider dc home with PICC on Invanz 1 gm daily for 7-10 more days Consultation Date/Type/Reason Admit Date/Time Jul 05, 2019 at 02:11 Initial Consult Date Type of Consult id Date/Time of Note DATE: 07/07/19 TIME: 09:45 Exam/Review of Systems Exam Vitals Vital Signs Date Temp Pulse Resp B/P (MAP) Pulse Ox O2 O2 Flow FiO2 Time Delivery Rate 07/07/19 97.6 58 17 135/88 97 08:00 (104) 07/07/19 Room Air 02:21 Intake and Output 07/06/19 07/06/19 07/07/19 1515:00 23:00 07:00 IntakeIntake Total 1250 ml 1125 ml 250 ml BalanceBalance 1250 ml 1125 ml 250 ml Results Result Diagram: 07/07/19 0543 07/07/19 0543 Results 24hrs Laboratory Tests Test 07/06/19 12:15 07/06/19 14:13 07/07/19 05:43 Urine Color STRAW Urine Clarity CLEAR Urine pH 7.0 Urine Specific [place] 1.005 Urine Ketones NEGATIVE Urine Nitrite NEGATIVE Urine Bilirubin NEGATIVE Urine Urobilinogen NEGATIVE Urine Leukocyte Esterase 2+ H Urine Microscopic RBC 13 H Urine Microscopic WBC 60 H Urine Bacteria FEW A Urine Hemoglobin 3+ H Urine Glucose NEGATIVE Urine Total Protein NEGATIVE Potassium Level 3.5 3.4 L Vancomycin Level Trough 8.7 L White Blood Count 8.5 Red Blood Count 2.53 L Hemoglobin 7.8 L Hematocrit 23.5 L Mean Corpuscular Volume 92.9 Mean Corpuscular Hemoglobin 30.8 Mean Corpuscular Hemoglobin Concent 33.2 Red Cell Distribution Width 14.7 H Platelet Count 240 Mean Platelet Volume 11.2 H Immature Granulocytes % 6.400 H Neutrophils % Lymphocytes % Monocytes % Eosinophils % Basophils % Nucleated Red Blood Cells % 0.5 H Immature Granulocytes # 0.540 H Neutrophils # Lymphocytes # Monocytes # Eosinophils # Basophils # Nucleated Red Blood Cells # Sodium Level 140 Chloride Level 109 Carbon Dioxide Level 26 Anion Gap 5 Blood Urea Nitrogen 6 L Creatinine 0.61 Est Glomerular Filtrat Rate mL/min > 60 Glucose Level 111 Calcium Level 7.9 L Iron Level 33 L Total Iron Binding Capacity 218 L Percent Iron Saturation 15 L Medications Medication Current Medications Morphine Sulfate (morphine) 2 mg Q4H PRN IV SEVERE PAIN LEVEL 7-10 Last administered on 07/07/19 05:38; Admin Dose 2 MG; Start 07/05/19 at 05:30 Piperacillin Sod/ Tazobactam Sod 100 ml @ 200 mls/hr Q8 IVPB Last administered on 07/07/19 05:41; Admin Dose 200 MLS/HR; Start 07/05/19 at 06:00 Vancomycin HCl (Vanco Iv Per Pharmacy) VANCOMYCIN PER PHARMACY PER PROTOCOL XX ; Start 07/05/19 at 14:30 Acetaminophen (Tylenol Tab) 650 mg Q4H PRN PO MILD PAIN(1-3)OR ELEVATED TEMP Last administered on 07/06/19at 03:11; Admin Dose 650 MG; Start 07/05/19 at 15:00 Potassium Chloride/Dextrose/ Sod Cl 1,000 ml @ 75 mls/hr [id number] IV Last administered on 07/07/19 05:38; Admin Dose 75 MLS/HR; Start 07/06/19 at 08:30 Acetaminophen/ Hydrocodone Bitart ([place] (5/325)) 1 tab Q6H PRN PO MODERATE PAIN LEVEL 4-6; Start 07/06/19 at 12:00 Ketorolac Tromethamine (Toradol) 15 mg Q6H PRN IV PAIN Last administered on 07/07/19at 03:38; Admin Dose 15 MG; Start 07/06/19 at 12:00; Stop 07/09/19 at 11:59 Pantoprazole (Protonix Tab) 40 mg DAILY@06 PO Last administered on 07/07/19at 05:38; Admin Dose 40 MG; Start 07/07/19 at 06:00 Vancomycin/Sodium Chloride 250 ml @ 83.333 mls/ hr Q8H IVPB Last administered on 07/07/19at 06:42; Admin Dose 83.333 MLS/HR; Start 07/06/19 at 23:00 LINDA ELLSWORTH NP Jul 07, 2019 09:47
[2019-07-07] MEDS: ERTAPENEM SODIUM 1 GM in SOD CHLORIDE 0.9% 100 ML IVPB SCH (11:08)
[2019-07-07 14:00] VITALS: BP 132/80; PULSE 60; RESP 19
--- NOTE | 2019-07-07 14:07 | PN ---
Date/Time of Note Date/Time of Note DATE: 07/07/19 TIME: 14:04 Assessment/Plan VTE Prophylaxis [place] [facility] [place] [facility]: 4 SCD applied [place] [facility] Yes Pharmacological prophylaxis: NA/contraindicated Pharm contraindication: low risk/ambulating Lines/Catheters IV Catheter Type (from [facility]): Peripheral IV Assessment/Plan Hospital Course 1. Sepsis with fever and leucocytosis. IMproved, WBC went down 2. Subcutaneous abscess 3. Recent methicillin-susceptible Staphylococcus aureus bacteremia. 4. Constipation. 5. Severe anemia, iron deficiency 6. Hypokalemia 7. Obesity 8. UTI Assessment/Plan do not touch surg. wound/dressing per Dr Evans Jones 1 G IV needed for HH infusion -case management manager to arrange HH -d/c planning tomorrow AM -Midline placement -ferrlicit IV Result Diagram: 07/07/19 0543 07/07/19 0543 Results 24hrs Laboratory Tests Test 07/06/19 14:13 07/07/19 05:43 Potassium Level 3.5 3.4 L Vancomycin Level Trough 8.7 L White Blood Count 8.5 Red Blood Count 2.53 L Hemoglobin 7.8 L Hematocrit 23.5 L Mean Corpuscular Volume 92.9 Mean Corpuscular Hemoglobin 30.8 Mean Corpuscular Hemoglobin Concent 33.2 Red Cell Distribution Width 14.7 H Platelet Count 240 Mean Platelet Volume 11.2 H Immature Granulocytes % 6.400 H Neutrophils % Segmented Neutrophils % (Manual) 75 Band Neutrophils % (Manual) 4 Lymphocytes % Lymphocytes % (Manual) 16 Monocytes % Monocytes % (Manual) 2 Eosinophils % Eosinophils % (Manual) 1 Basophils % Metamyelocytes % (manual) 1 H Myelocytes % (Manual) 1 H Nucleated Red Blood Cells % 0.5 H Immature Granulocytes # 0.540 H Neutrophils # Neutrophils # (Manual) 6.4 Band Neutrophils # 0.3 Lymphocytes (Manual) 1.3 Lymphocytes # Monocytes # Monocytes # (Manual) 0.1 L Eosinophils # Basophils # Metamyelocytes # 0.0 Myelocytes # 0.0 Nucleated Red Blood Cells # Platelet Estimate NORMAL Giant Platelets 1 H Polychromasia 1+ Poikilocytosis 1+ Sodium Level 140 Chloride Level 109 Carbon Dioxide Level 26 Anion Gap 5 Blood Urea Nitrogen 6 L Creatinine 0.61 Est Glomerular Filtrat Rate mL/min > 60 Glucose Level 111 Calcium Level 7.9 L Iron Level 33 L Total Iron Binding Capacity 218 L Percent Iron Saturation 15 L Subjective 24 Hr Interval Summary Constitutional: improved Musculoskeletal: restricted range of motion Exam/Review of Systems Exam Vitals Vital Signs Date Temp Pulse Resp B/P (MAP) Pulse Ox O2 O2 Flow FiO2 Time Delivery Rate 07/07/19 97.6 58 17 135/88 97 08:00 (104) 07/07/19 Room Air 02:21 Intake and Output 07/06/19 07/06/19 07/07/19 1515:00 23:00 07:00 IntakeIntake Total 1250 ml 1125 ml 250 ml BalanceBalance 1250 ml 1125 ml 250 ml Exam no fever 2 days No acute distress, no events overnight. Eyes: anicteric, EOM's intact, no pallor Nose: no rhinorrhea Neck: supple, no thyromegaly, no carotid bruits Lungs: clear bilaterally, decreased. CVS: regular rate and rhythm, no murmurs Abdomen: soft, bowel sounds present, no hepatosplenomegally, no masses, no rebound or guarding. Rectal: differed. External genitalia: no lesions. Extremities: no edema, DP pulses are palpable Neuro: alert and oriented x 3 Gait: normal Motor strenght: 5+/5+ Skin: lower abd surg dressing intact Results Results 24hrs Laboratory Tests Test 07/06/19 14:13 07/07/19 05:43 Potassium Level 3.5 3.4 L Vancomycin Level Trough 8.7 L White Blood Count 8.5 Red Blood Count 2.53 L Hemoglobin 7.8 L Hematocrit 23.5 L Mean Corpuscular Volume 92.9 Mean Corpuscular Hemoglobin 30.8 Mean Corpuscular Hemoglobin Concent 33.2 Red Cell Distribution Width 14.7 H Platelet Count 240 Mean Platelet Volume 11.2 H Immature Granulocytes % 6.400 H Neutrophils % Segmented Neutrophils % (Manual) 75 Band Neutrophils % (Manual) 4 Lymphocytes % Lymphocytes % (Manual) 16 Monocytes % Monocytes % (Manual) 2 Eosinophils % Eosinophils % (Manual) 1 Basophils % Metamyelocytes % (manual) 1 H Myelocytes % (Manual) 1 H Nucleated Red Blood Cells % 0.5 H Immature Granulocytes # 0.540 H Neutrophils # Neutrophils # (Manual) 6.4 Band Neutrophils # 0.3 Lymphocytes (Manual) 1.3 Lymphocytes # Monocytes # Monocytes # (Manual) 0.1 L Eosinophils # Basophils # Metamyelocytes # 0.0 Myelocytes # 0.0 Nucleated Red Blood Cells # Platelet Estimate NORMAL Giant Platelets 1 H Polychromasia 1+ Poikilocytosis 1+ Sodium Level 140 Chloride Level 109 Carbon Dioxide Level 26 Anion Gap 5 Blood Urea Nitrogen 6 L Creatinine 0.61 Est Glomerular Filtrat Rate mL/min > 60 Glucose Level 111 Calcium Level 7.9 L Iron Level 33 L Total Iron Binding Capacity 218 L Percent Iron Saturation 15 L Medications Medication Current Medications Morphine Sulfate (morphine) 2 mg Q4H PRN IV SEVERE PAIN LEVEL 7-10 Last administered on 07/07/19 05:38; Admin Dose 2 MG; Start 07/05/19 at 05:30 Acetaminophen (Tylenol Tab) 650 mg Q4H PRN PO MILD PAIN(1-3)OR ELEVATED TEMP Last administered on 07/06/19 03:11; Admin Dose 650 MG; Start 07/05/19 at 15:00 Potassium Chloride/Dextrose/ Sod Cl 1,000 ml @ 75 mls/hr [id number] IV Last administered on 07/07/19 05:38; Admin Dose 75 MLS/HR; Start 07/06/19 at 08:30 Acetaminophen/ Hydrocodone Bitart ([place] (5/325)) 1 tab Q6H PRN PO MODERATE PAIN LEVEL 4-6; Start 07/06/19 at 12:00 Ketorolac Tromethamine (Toradol) 15 mg Q6H PRN IV PAIN Last administered on 07/07/19 11:02; Admin Dose 15 MG; Start 07/06/19 at 12:00; Stop 07/09/19 at 11:59 Pantoprazole (Protonix Tab) 40 mg DAILY@06 PO Last administered on 07/07/19 05:38; Admin Dose 40 MG; Start 07/07/19 at 06:00 Ertapenem 1 gm/ Sodium Chloride 100 ml @ 200 mls/hr Q24H IVPB Last administered on 07/07/19 11:08; Admin Dose 200 MLS/HR; Start 07/07/19 at 11:00 DEBO DIXON NP Jul 07, 2019 14:07
[2019-07-07 20:00] VITALS: BP 148/84; PULSE 62; RESP 18
[2019-07-07] MEDS: ACETAMINOPHEN 325 MG TAB PO PRN (23:42)
[2019-07-08 02:00] VITALS: BP 142/79; PULSE 56; RESP 18
[2019-07-08] MEDS: D5W-0.45 NACL + KCL 20 MEQ 1,000 ML IV SCH ×2 (02:22→13:50)
[2019-07-08] MEDS: KETOROLAC 15 MG INJ IV PRN (02:22)
[2019-07-08] MEDS: PANTOPRAZOLE (EC) 40 MG TAB PO SCH (06:00)
[2019-07-08 07:50] VITALS: BP 143/89; PULSE 54; RESP 18
[2019-07-08] MEDS ORDERED: HYDROGEN PEROXIDE 118 ML TOP SCH (09:00)
[2019-07-08] MEDS: ERTAPENEM SODIUM 1 GM in SOD CHLORIDE 0.9% 100 ML IVPB SCH (10:48)
--- NOTE | 2019-07-08 11:22 | CONS ---
Assessment/Plan Assessment/Plan Hospital Course (Demo Recall) No acute events Drainage cx for incision + E coli ESBL and Staph Antimicrobials: Invanz Physical examination: Obese well-developed middle-aged woman who is alert in no distress. Head atraumatic normocephalic neck is supple chest rise symmetrical breath sounds clear heart S1-S2 abdomen soft bowel sounds present patient has lower abdominal incision with drainage she still has Steri-Strips intact extremities no cyanosis Assessment: 1. Incisional cellulitis==> no abscess per CT 2. S/p MSSA bacteremia per blood cultures drawn on June 30, 2019 3. Status post Plan: Stable, add Cipro, pending dc home with PICC on Invanz 1 gm daily and PO Cipro for 7-10 more days Consultation Date/Type/Reason Admit Date/Time Jul 05, 2019 at 02:11 Initial Consult Date Type of Consult id Date/Time of Note DATE: 07/08/19 TIME: 11:20 Exam/Review of Systems Exam Vitals Vital Signs Date Temp Pulse Resp B/P (MAP) Pulse Ox O2 O2 Flow FiO2 Time Delivery Rate 07/08/19 98.7 54 18 143/89 97 07:50 (107) 07/07/19 Room Air 02:21 Intake and Output 07/07/19 07/07/19 07/08/19 1515:00 23:00 07:00 IntakeIntake Total 450 ml 3370 ml 430 ml OutputOutput Total 1500 ml BalanceBalance 450 ml 1870 ml 430 ml Results Result Diagram: 07/08/19 0613 07/08/19 0613 Results 24hrs Laboratory Tests Test 07/08/19 06:13 07/08/19 06:15 White Blood Count 9.6 Red Blood Count 2.74 L Hemoglobin 8.4 L Hematocrit 25.4 L Mean Corpuscular Volume 92.7 Mean Corpuscular Hemoglobin 30.7 Mean Corpuscular Hemoglobin Concent 33.1 Red Cell Distribution Width 14.9 H Platelet Count 275 Mean Platelet Volume 11.4 H Immature Granulocytes % 5.000 H Neutrophils % 64.4 Lymphocytes % 22.3 Monocytes % 7.0 Eosinophils % 1.1 Basophils % 0.2 Nucleated Red Blood Cells % 0.4 H Immature Granulocytes # 0.480 H Neutrophils # 6.2 Lymphocytes # 2.1 Monocytes # 0.7 Eosinophils # 0.1 Basophils # 0.0 Nucleated Red Blood Cells # 0.0 Sodium Level 139 Potassium Level 3.3 L Chloride Level 105 Carbon Dioxide Level 27 Anion Gap 7 Blood Urea Nitrogen 8 Creatinine 0.84 Est Glomerular Filtrat Rate mL/min > 60 Glucose Level 89 Calcium Level 7.8 L Lab Scanned Report BLOOD TRANSFUSION Medications Medication Current Medications Morphine Sulfate (morphine) 2 mg Q4H PRN IV SEVERE PAIN LEVEL 7-10 Last administered on 07/07/19at 22:30; Admin Dose 2 MG; Start 07/05/19 at 05:30 Acetaminophen (Tylenol Tab) 650 mg Q4H PRN PO MILD PAIN(1-3)OR ELEVATED TEMP Last administered on 07/07/19at 23:42; Admin Dose 650 MG; Start 07/05/19 at 15:00 Potassium Chloride/Dextrose/ Sod Cl 1,000 ml @ 75 mls/hr [id number] IV Last administered on 07/08/19at 02:22; Admin Dose 75 MLS/HR; Start 07/06/19 at 08:30 Acetaminophen/ Hydrocodone Bitart ([place] (5/325)) 1 tab Q6H PRN PO MODERATE PAIN LEVEL 4-6; Start 07/06/19 at 12:00 Ketorolac Tromethamine (Toradol) 15 mg Q6H PRN IV PAIN Last administered on 07/08/19at 02:22; Admin Dose 15 MG; Start 07/06/19 at 12:00; Stop 07/09/19 at 11:59 Pantoprazole (Protonix Tab) 40 mg DAILY@06 PO Last administered on 07/07/19at 05:38; Admin Dose 40 MG; Start 07/07/19 at 06:00 Ertapenem 1 gm/ Sodium Chloride 100 ml @ 200 mls/hr Q24H IVPB Last administered on 07/08/19at 10:48; Admin Dose 200 MLS/HR; Start 07/07/19 at 11:00 Ferric Sodium Gluconate Complex 125 mg/Sodium Chloride 110 ml @ 110 mls/hr DAILY@1300 IVPB ; Start 07/08/19 at 13:00; Stop 07/12/19 at 13:59 Hydrogen Peroxide (Hydrogen Peroxide) 1 applic DAILY TOP ; Start 07/08/19 at 09:00 Potassium Chloride (Potassium Chloride Pwd/Soln) 40 meq ONCE ONCE PO ; Start 07/08/19 at 11:30; Stop 07/08/19 at 11:31 LINDA ELLSWORTH NP Jul 08, 2019 11:22
[2019-07-08] MEDS ORDERED: POTASSIUM CHLORIDE 20 MEQ POWDER FOR ORAL SOLN PO ONE (11:30)
--- NOTE | 2019-07-08 11:30 | PDOCDIS ---
Discharge Instructions CONDITION [id number] Patient Condition: [id number] Stable ACTIVITY: [id number] Activity Restrictions: Semse6l Slowly Increase Activity Rest between Activity Avoid heavy lifting FOLLOW UP/APPOINTMENTS Follow-up Plan Dr Abreu gynecology 1 week REFERRALS [place] Agency Name and Phone Number: DEBO Moeller NP Jul 08, 2019 11:30
--- NOTE | 2019-07-08 11:33 | DS ---
Date/Time of Note Date/Time of Note DATE: 07/08/19 TIME: 11:32 Discharge Summary Admission/Discharge Info Admit Date/Time Jul 05, 2019 at 02:11 Discharge Date/Time Patient Condition: Stable Consults Dr Abreu, gynecology, dr Carlito MORSE MD Hospital Course This is a 29-year-old female who was admitted under laborist from 06/26/2019 until 07/03/2019. At that time, patient had intrauterine of 40 weeks. The patient had failure to descend, maternal fever and tachycardia. The patient had primary low transverse delivery. However, the patient was noted to have blood cultures on 06/30/2019 that were positive for Staph aureus. The patient was seen by ID consultation who recommended discharge home with midl ine IV Rocephin to complete 2 weeks versus p.o. Cipro, but no while on it. The patient went home on 07/03/2019. However, the patient said that last night after a day, the patient went in the bathroom. All of a sudden, she started having pain in the lower abdomen. She was noted to have purulent discharge from her left side of the incision. She was also having fevers and the smell was really bad which was making her feel nauseous and came to the emergency department. On arrival, the patient was having fevers of 101.2, heart rate 113, respirations 24, blood pressure 122/73. Potassium was 2.4, BUN of 10, creatinine 0.5, white count 8.5, hemoglobin 8.0, platelet count 218. The patient received NS boluses, potassium chloride, Zosyn, morphine and was admitted for further management. Per ER notes, [facility] was contacted, but they have not seen the patient currently. PAST MEDICAL HISTORY: Anemia. ALLERGIES: NONE. PAST SURGICAL HISTORY: Recent on 07/01/2019. SOCIAL HISTORY: Denies any history of smoking, alcohol, drugs. Lives with family at home. Has a baby boy recently delivered. MEDICATIONS TAKING AT HOME: 1. Cipro 500 b.i.d. 2. Iron sulfate 325 b.i.d. 3. Ibuprofen. 4. Colace. Dx:1. Sepsis with fever and leucocytosis. IMproved, WBC went down 2. Subcutaneous abscess 3. Recent methicillin-susceptible Staphylococcus aureus bacteremia. 4. Constipation. 5. Severe anemia, iron deficiency 6. Hypokalemia 7. Obesity 8. UTI During hospitalization patient was seen by numerous specialists. Dr Abreu, gynecology cut edges of wound and checked it. Per her note fascia is intact and she covered wound with surgical dressing and ordered not to open it. There is a surgical dressing now, we re not allowed to touch it or change it. Dr. Esteban was ID consult. We followed his recommendations. Pt was given Vancomycin and Zosyn IV until wound culture showed MRSA. Pt was placed in contact isolation. She was started on Invanz Iv, Midline was placed for continuation care at home. Her pain was controlled. We started pt on IV iron for her anemia. For UTI that was found we started pt on CIpro. Patient is clinically improved. Patient was able to tolerate regular diet, was able to ambulate, and does not require an additional oxygenation. Plan of care was discussed with Dr. Patel/Dr. Ocasio. In stable condition patient was discharged. Patient was instructed to continue pump breast milk and Dump it due to a/b use. Home health is arranged for her to continue IV infusion of Invanz an d Iron. Patient was instructed to see gynecology Dr Abreu 1 week. All questions were answered and all problems were addressed. Home Meds Active Scripts L Acidophil/B Lactis/B Longum (FLORAJEN3 CAPSULE) 460 Mg Capsule, 1 EACH PO BID for 30 Days, CAP Prov:DEBO DIXON [employer] 07/08/19 Ciprofloxacin Hcl* (Ciprofloxacin Hcl*) 500 Mg Tablet, 500 MG PO BID for 7 Days, TAB Prov:DEBO DIXON [employer] 07/08/19 Reported Medications Docusate Sodium* (Docusate Sodium*) 100 Mg Capsule, 100 MG PO DAILY for 30 Days, #60 07/05/19 Ferrous Sulfate* (Ferrous Sulfate*) 325 Mg Tabec, 325 MG PO BID for 30 Days, #60 07/05/19 Discontinued Reported Medications Ibuprofen* (Ibuprofen*) 800 Mg Tablet, 800 MG PO DAILY PRN for PAIN LEVEL 1-5 07/05/19 Vit No.124/Iron/FA ( Vitamin Tablet) 1 Each Tablet, 1 EACH PO DAILY, TAB 06/26/19 Follow-up Plan Dr Abreu gynecology 1 week Primary Care Provider Not On Staff Doctor Time spent on discharge: < 30 minutes Pending Labs Laboratory Tests Test 07/08/19 06:13 07/08/19 06:15 White Blood Count 9.6 10^3/ul (4.8-10.8) Red Blood Count 2.74 10^6/ul (4.20-5.40) Hemoglobin 8.4 g/dl (12.0-16.0) Hematocrit 25.4 % (37.0-47.0) Mean Corpuscular Volume 92.7 fl (82.0-101.0) Mean Corpuscular Hemoglobin 30.7 pg (29.0-33.0) Mean Corpuscular 33.1 g/dl (32.0-37.0) Hemoglobin Concent Red Cell Distribution Width 14.9 % (11.5-14.5) Platelet Count 275 10^3/UL (140-415) Mean Platelet Volume 11.4 fl (7.4-10.4) Immature Granulocytes % 5.000 % (0.001-0.429) Neutrophils % 64.4 % (39.0-77.0) Lymphocytes % 22.3 % (15.0-51.0) Monocytes % 7.0 % (0.0-11.0) Eosinophils % 1.1 % (0.0-7.0) Basophils % 0.2 % (0.0-2.0) Nucleated Red Blood Cells % 0.4 /100WBC (0.0-0.0) Immature Granulocytes # 0.480 10^3/ul (0.0-0.031) Neutrophils # 6.2 10^3/ul (1.6-7.5) Lymphocytes # 2.1 10^3/ul (0.8-2.9) Monocytes # 0.7 10^3/ul (0.3-0.9) Eosinophils # 0.1 10^3/ul (0.0-0.5) Basophils # 0.0 10^3/ul (0.0-0.1) Nucleated Red Blood Cells # 0.0 10^3/ul (0.0-0.0) Sodium Level 139 mmol/L (135-144) Potassium Level 3.3 mmol/L (3.5-5.1) Chloride Level 105 mmol/L (97-110) Carbon Dioxide Level 27 mmol/L (21-31) Anion Gap 7 (5-13) Blood Urea Nitrogen 8 mg/dl (7-20) Creatinine 0.84 mg/dl (0.44-1.00) Est Glomerular Filtrat Rate mL/min > 60 mL/min (>60) Glucose Level 89 mg/dl (70-220) Calcium Level 7.8 mg/dl (8.4-10.2) Lab Scanned Report BLOOD TRANSFUSION DEBO DIXON NP Jul 08, 2019 11:33
[2019-07-08] MEDS ORDERED: SOD FERRIC GLUC COMPLX 125 MG in SOD CHLORIDE 0.9% 100 ML IVPB SCH (13:00)
[2019-07-08] MEDS ORDERED: CIPROFLOXACIN 500 MG TAB PO SCH (18:00)
[2019-07-08] MEDS ORDERED: L ACIDOPHIL/B LACTIS/B LONGUM CAPSULE PO SCH (21:00)
== END 2019-07-08 14:20 | disposition home health service (06) | DRG 776 ==
LOC: E/R 22:33 → PP2 07-05 02:11
PROVIDERS: ADMIT Internal Medicine Nephrology; ATTEND Internal Medicine Nephrology
PROC: 30233N1 Transfusion of Nonautologous Red Blood Cells into Peripheral Vein, Percutaneous Approach (ICD-10-PCS; principal; 2019-07-06)
DX: O86.04 Sepsis following an obstetrical procedure (principal); O86.20 Urinary tract infection following delivery, unspecified; O86.09 Infection of obstetric surgical wound, other surgical site; O90.0 Disruption of cesarean delivery wound; K59.00 Constipation, unspecified; D64.9 Anemia, unspecified; E87.6 Hypokalemia; E66.9 Obesity, unspecified; Z68.31 Body mass index [BMI] 31.0-31.9, adult; B96.20 Unspecified Escherichia coli [E. coli] as the cause of diseases classified elsewhere; B95.61 Methicillin susceptible Staphylococcus aureus infection as the cause of diseases classified elsewhere
CPT/HCPCS: 36415; 36430; 71045; 74176; 80048; 80053; 80202; 81001; 83540; 83605; 83735; 84100; 84132; 84484; 85025; 85610; 85730; 86850; 86900; 86901; 86920; 87070; 87081; 87086; 93005; 96361; 96365; 96375; C9113; J1335; J1885; J2270; J2405; J2543; J2916; J3370; J3480; J7030; J7042; P9016